=== PATIENT | female | born 1940 | race Caucasian/White ===

== ENCOUNTER → 2017-12-01 11:52 | Outpatient (CLI) | payer MEDICARE, OTHER, SELFPAY ==
[2017-12-01 12:51] LABS: Hemoglobin A1C% w Est Avg Glu 6.9 % (4.0-6.0)
[2017-12-01 12:58] LABS: Alanine Aminotransferase 20 IU/L (9-52); Albumin 4.1 g/dL (3.5-5.0); Albumin Globulin Ratio 1.3 (1.0-2.8); Alkaline Phosphatase 66 U/L (38-126); Aspartate Aminotransferase 22 IU/L (14-36); BUN Creatinine Ratio 32.9 (6-22); Bilirubin Total 0.5 mg/dL (0.2-1.3); Blood Urea Nitrogen 23 mg/dL (7-17); Calcium 9.7 mg/dL (8.4-10.2); Carbon Dioxide 28 mmol/L (22-32); Chloride 106 mmol/L (98-107); Cholesterol 153 mg/dL (140-199); Estimated Glomerular Filt Rate > 60.0 mL/min (>60); Globulin 3.2 g/dL (1.7-4.1); Glucose 135 mg/dL (80-110); HDL Cholesterol 50 mg/dL (40-60); HEMOLYSIS < 15 (0-50); LDL Cholesterol Calculated 69 mg/dL (<100); Potassium 4.9 mmol/L (3.4-5.1); Sodium 143 mmol/L (137-145); Total Protein 7.3 g/dL (6.3-8.2); Triglycerides 168 mg/dL (35-150)
== END ==
PROVIDERS: Family Provider Family Medicine; PCP Family Medicine; Visit Provider Nurse Practitioner Family
DX: E11.9 Type 2 diabetes mellitus without complications (principal); Z13.220 Encounter for screening for lipoid disorders
CPT/HCPCS: 36415; 80053; 80061; 83036

== ENCOUNTER → 2018-12-17 08:43 | Outpatient (CLI) | payer MEDICARE, OTHER, SELFPAY ==
[2018-12-17 09:28] LABS: BUN Creatinine Ratio 38.3 (6-22); Blood Urea Nitrogen 23 mg/dL (7-17); Calcium 9.7 mg/dL (8.4-10.2); Carbon Dioxide 23 mmol/L (22-32); Chloride 108 mmol/L (98-107); Estimated Glomerular Filt Rate > 60.0 mL/min (>60); Glucose 169 mg/dL (80-110); HEMOLYSIS < 15 (0-50); Potassium 4.3 mmol/L (3.4-5.1); Sodium 141 mmol/L (137-145)
== END ==
PROVIDERS: PCP Family Medicine; Visit Provider Internal Medicine Cardiovascular Disease
DX: I42.8 Other cardiomyopathies (principal)
CPT/HCPCS: 36415; 80048; 84443

== ENCOUNTER → 2019-01-12 11:38 | Outpatient (CLI) | payer MEDICARE, OTHER, SELFPAY ==
[2019-01-12 12:45] LABS: B Type Natriuretic Peptide < 100 (<100)
[2019-01-12 12:48] LABS: Alanine Aminotransferase 12 IU/L (9-52); Albumin 4.1 g/dL (3.5-5.0); Albumin Globulin Ratio 1.2 (1.0-2.8); Alkaline Phosphatase 70 U/L (38-126); Aspartate Aminotransferase 23 IU/L (14-36); BUN Creatinine Ratio 32.9 (6-22); Bilirubin Total 0.5 mg/dL (0.2-1.3); Blood Urea Nitrogen 23 mg/dL (7-17); Calcium 9.7 mg/dL (8.4-10.2); Carbon Dioxide 25 mmol/L (22-32); Chloride 106 mmol/L (98-107); Estimated Glomerular Filt Rate > 60.0 mL/min (>60); Globulin 3.3 g/dL (1.7-4.1); Glucose 152 mg/dL (80-110); HEMOLYSIS 18 (0-50); Potassium 4.3 mmol/L (3.4-5.1); Sodium 140 mmol/L (137-145); Total Protein 7.4 g/dL (6.3-8.2)
== END ==
PROVIDERS: PCP Family Medicine; Visit Provider Internal Medicine Cardiovascular Disease
DX: I42.8 Other cardiomyopathies (principal)
CPT/HCPCS: 36415; 80053; 83880

== ENCOUNTER 2019-07-24 00:28 | Emergency (ER) | payer MEDICARE, OTHER, SELFPAY ==
[2019-07-24] VITALS (7 sets, daily range): BP systolic 112–173; BP diastolic 56–77; PULSE 81–91; RESP 16–20; TEMP 36.8; O2SAT 97–99; BMI 52.7
--- NOTE | 2019-07-24 00:33 | DI.CT.S_ITS ---
PROCEDURE: CT HEAD/BRAIN WO CON INDICATIONS: altered mental status TECHNIQUE: Noncontrast 4.5 mm thick angled axial sections acquired from the foramen magnum to the vertex, with coronal and sagittal reformats. For radiation dose reduction, the following was used: automated exposure control, adjustment of mA and/or kV according to patient size. COMPARISON: None. FINDINGS: Image quality: This examination is limited by involuntary motion artifact. CSF spaces: Basal cisterns are patent. No extra-axial fluid collections. The ventricles are symmetric in size and shape. Brain: No intracranial bleeds or masses. There is cerebral volume loss for age, with resultant ventricular and sulcal prominence. There are periventricular and deep white matter chronic small vessel ischemic changes. There is intracranial internal carotid artery atherosclerosis. Skull and face: Calvarium and visualized facial bones appear intact, without suspicious lesions. Sinuses: Visualized sinuses and mastoids are clear. IMPRESSION: Limited intracranial study, without an acute intracranial process identified. Note: No significant discrepancy from the preliminary report. Dictated by: Glen Will M.D. on 07/24/2019 at 7:18 Approved by: Glen Will M.D. on 07/24/2019 at 7:19
--- NOTE | 2019-07-24 00:36 | ED_ITS ---
HPI - General Adult General Chief complaint: Altered Mental Status Stated complaint: Altered mental status Time Seen by Provider: 07/24/19 00:32 Source: patient and EMS Mode of arrival: EMS Limitations: no limitations History of Present Illness HPI narrative: Patient is a 79-year-old female who arrives by air ambulance from [place] for evaluation of altered mental status. Received a call from the geophysical party chief over [place] who stated that they were called to the patient's health several times today. The last time that they were called was for a fall. [place] that the [place] did seem more confused today. She stated that during their last visit to her the patient was alert and oriented x4 per the report however they do feel like that she was not answering questions as fast or sharply as she was earlier in the day. They were concerned about her altered mental status. There was also report that the patient was exposed to an individual who had COVID-19 although this patient was not currently exhibiting fevers cough or shortness of breath. Upon arrival the patient states that she did not feel like she was confused today. She stated that the reason she fell was that she slid out of her wheelchair and could not get up off the ground. She spends most of her day in the wheelchair. She does transition from the wheelchair to a bedside commode. She does live alone. She states she has been taking her medications. She denies any chest pain or shortness of breath or abdominal pain or headache or vision changes or nausea or vomiting. Related Data Home Medications Medication Instructions Recorded Confirmed ACETAMINOPHEN (TYLENOL EXTRA 1,000 mg PO BID #0 09/18/10 STRENGTH) cholecalciferol (vitamin D3) 2,000 unit PO BID #0 12/04/15 [Vitamin D3] Previous Rx's Medication Instructions Recorded atorvastatin [Lipitor] 40 mg PO HS #90 tab 12/04/15 metformin [Glucophage] 500 mg PO BIDCC #180 tab 07/04/16 gentamicin 0.1 % TOPICAL BID #60 % 10/02/16 silver sulfadiazine [Silvadene] 1 etelvina TOPICAL QDAY #45 gm 10/27/16 triamcinolone acetonide 1 etlevina TOPICAL BID #60 gm 11/05/16 levothyroxine 0.05 mg PO QAM #90 tab 11/10/16 allopurinol 300 mg PO QDAY #180 tab 12/16/16 Allergies Allergy/AdvReac Type Severity Reaction Status Date / Time No Known Drug Allergies Allergy Verified 07/24/19 02:51 Review of Systems Constitutional Constitutional: Denies chills, Denies fatigue, Denies fever(s), Denies frequent falls, Denies headache(s) and Denies malaise Eyes Eyes: Denies change in vision ENT Ears, Nose, Mouth, and Throat: Denies vertigo, Denies dizziness, Denies headache(s), Denies neck pain, Denies disequilibrium and Denies sore throat Cardiovascular Cardiovascular: Denies chest pain and Denies dyspnea Respiratory Respiratory: Denies cough and Denies dyspnea Gastrointestinal Gastrointestinal: Denies abdominal pain, Denies nausea and Denies vomiting Genitourinary Genitourinary: Denies dysuria Musculoskeletal Musculoskeletal: Denies myalgias, Denies arthralgias and Denies neck pain Comments: No change in musculoskeletal status Integumentary/Breasts Comments: No new skin changes Neurologic Neurologic: Reports confusion (Patient denies however EMS reports she has been confused), Denies vertigo, Denies dizziness, Denies frequent falls, Denies headache(s) and Denies disequilibrium Psychiatric Psychiatric: Reports confusion (Patient denies however EMS reports she has been confused) Endocrine Endocrine: Denies fatigue Hematologic/Lymphatic Hematologic/Lymphatic: Denies easy bleeding and Denies easy bruising Allergic/Immunologic Allergic/Immunologic: Denies urticaria Patient History Medical History (Updated 07/24/19 @ 05:37 by Martín Mon DO) Anemia (08/20/15) Chronic dermatitis (08/20/15) Chronic systolic congestive heart failure (08/20/15) Continuous leakage of urine (08/20/15) Coronary artery disease involving [place]da coronary artery of mecho[place]da heart without angina pectoris (08/20/15) Decubitus ulcer of sacral region, stage 2 (10/27/16) Essential hypertension (08/20/15) Idiopathic chronic gout of foot without tophus (08/20/15) Implantable cardioverter-defibrillator (ICD) in situ (08/20/15) Left bundle branch block (LBBB) (08/20/15) Moderate episode of recurrent major depressive disorder (08/20/15) Morbid obesity due to excess calories (09/20/15) Primary osteoarthritis involving multiple joints (08/20/15) Stage 3 chronic kidney disease (08/20/15) Type 2 diabetes mellitus without complication, with long-term current use of insulin (08/20/15) Surgical History History of tonsillectomy Implantable cardioverter-defibrillator (ICD) in situ S/P total abdominal hysterectomy and bilateral salpingo-oophorectomy Social History Smoking Status: Never smoker Exam Initial Vital Signs Initial Vital Signs: Vital Signs Temperature 98.3 F 07/24/19 00:32 Pulse Rate 91 H 07/24/19 00:32 Respiratory Rate 20 07/24/19 00:32 Blood Pressure 173/77 H 07/24/19 00:32 Pulse Oximetry 97 07/24/19 00:32 Const General: cooperative and comfortable Limitations: mental status not altered HENMT Head: normal to inspection and normocephalic Resp Effort & Inspection: normal respiratory effort Auscultation: clear to auscultation bilaterally Cardio Rate: regular rate Rhythm: regular rhythm GI Inspection: non-distended Palpation: soft, No firm and No tender Neuro General: alert, awake, oriented x3 and moves all extremities Cranial Nerves: CN's II-XI intact bilaterally Cognition: normal cognition Speech: speech normal Extrem General: normal to inspection and capillary refill normal Psych Appearance: grossly normal and well kempt Scores GCS [place] coma scale eye opening: Spontaneous Arlet coma scale verbal response: Orientated [place] coma scale motor response: Obey commands [place] coma scale total score: 15 Course Orders Ordered: ED Orders 07/24/19 00:33 CT head/brain wo con Stat 07/24/19 00:34 EKG-12 Lead Stat 07/24/19 00:50 Urinalysis and Microscopic Stat Urine Drug Screen, Rapid Stat 07/24/19 01:10 Ammonia (NH3) Stat Complete Blood Count AUTO DIFF Stat Comprehensive Metabolic Panel Stat Ethanol (ETOH) Stat Lipase Stat Partial Thromboplastin Time Stat Prothrombin Time INR Stat Thyroid Stimulating Hormone Stat Troponin I Stat 07/24/19 03:30 Troponin I Stat Discontinued Medications Acetaminophen (Tylenol) 975 mg PO NOW ONE Stop: 07/24/19 02:45 Last Admin: 07/24/19 03:04 Dose: 975 mg Documented by: KALANI Metformin HCl (Glucophage) 1,000 mg PO NOW ONE Stop: 07/24/19 02:46 Last Admin: 07/24/19 03:04 Dose: 1,000 mg Documented by: KALANI Vital Signs Vital signs: Vital Signs - 8 hr 07/24/19 00:32 07/24/19 01:36 07/24/19 03:59 Temperature 98.3 F Pulse Rate 91 H 90 81 Respiratory Rate 20 20 18 Blood Pressure 173/77 H Blood Pressure [Right Arm] 146/60 H 133/75 Pulse Oximetry 97 97 97 Medical Decision Making Lab Data Lab results reviewed: Yes I reviewed the patient's lab results. Result diagrams: 07/24/19 01:10 07/24/19 01:10 Labs: Lab Results 07/24/19 07/24/19 07/24/19 Range/Units 00:50 00:50 01:10 WBC 14.0 H (4.5-11.0) X10^3/uL RBC 3.95 L (4.0-5.2) X10^6/uL Hgb 12.9 (12.0-16.0) g/dL Hct 39.6 (36-46) % MCV 100.4 H (80-100) fL MCH 32.6 (26-34) PG MCHC 32.5 (30-36) % RDW 15.5 H (11.6-14.8) % Plt Count 148 L (150-400) X10^3/uL Neut % (Auto) 86.6 H (50-75) % Lymph % (Auto) 7.2 L (25-40) % [place] % (Auto) 5.8 (3-14) % Eos % (Auto) 0.2 L (2-4) % Baso % (Auto) 0.2 (0-2) % Neut # (Auto) 57812 H (3383-7243) /uL Lymph # (Auto) 1000 L (7776-5261) /uL [place] # (Auto) 800 (0-900) /uL Eos # (Auto) 0 (0-450) /uL Baso # (Auto) 0 (0-100) /uL PT (10.1-12.7) SECONDS INR (0.9-1.3) APTT (26.4-36.2) SECONDS Sodium (137-145) mmol/L Potassium (3.4-5.1) mmol/L Chloride (98-107) mmol/L Carbon Dioxide (22-32) mmol/L BUN (7-17) mg/dL Creatinine (0.52-1.04) mg/dL Estimated GFR (>60) mL/min BUN/Creatinine Ratio (6-22) Glucose (80-110) mg/dL Calcium (8.4-10.2) mg/dL Total Bilirubin (0.2-1.3) mg/dL AST (14-36) IU/L ALT (<35) IU/L Alkaline Phosphatase (38-126) U/L Ammonia (9-30) umol/L Troponin I (0.01-0.034) ng/mL Total Protein (6.3-8.2) g/dL Albumin (3.5-5.0) g/dL Globulin (1.7-4.1) g/dL Albumin/Globulin Ratio (1.0-2.8) Lipase (23-300) U/L TSH (0.47-4.68) uIU/mL Urine Color Yellow Urine Appearance Clear Urine pH 5.0 (4.5-8.0) Ur Specific [place] 1.010 (1.000-1.035) Urine Protein Negative (Negative) Urine Glucose (UA) Negative (Negative) g/dL Urine Ketones Negative (NEGATIVE) Urine Occult Blood Negative (Negative) Urine Nitrate Negative (Negative) Urine Bilirubin Negative (NEGATIVE) Urine Urobilinogen 0.2 (0.2) E.U./dL Ur Leukocyte Esterase Negative (NEGATIVE) Urine RBC None seen (0-5/HPF) Urine WBC None seen (0-5/HPF) Ur Squamous Epith Cells 1-5 /hpf (0-5/HPF) Urine Bacteria Few (2-10) H (None) Ur Culture Indicated? Cult not indicated U Opiates 300ng/mL cut Negative (Negative) Ur Oxycodone Screen Negative (Negative) Urine Methadone Screen Negative (Negative) Ur Barbiturates Screen Negative (Negative) U Tricyclic Antidepress Negative (Negative) Ur Phencyclidine Scrn Negative (Negative) Ur Amphetamines Screen Negative (Negative) U Methamphetamines Scrn Negative (Negative) Ur MDMA Scrn (Ecstasy) Negative (Negative) U Benzodiazepines Scrn Negative (Negative) Urine Cocaine Screen Negative (Negative) U Marijuana (THC) Screen Negative (Negative) Ethyl Alcohol ( - 10) mg/dL 07/24/19 07/24/19 07/24/19 Range/Units 01:10 01:10 01:10 WBC (4.5-11.0) X10^3/uL RBC (4.0-5.2) X10^6/uL Hgb (12.0-16.0) g/dL Hct (36-46) % MCV (80-100) fL MCH (26-34) PG MCHC (30-36) % RDW (11.6-14.8) % Plt Count (150-400) X10^3/uL Neut % (Auto) (50-75) % Lymph % (Auto) (25-40) % [place] % (Auto) (3-14) % Eos % (Auto) (2-4) % Baso % (Auto) (0-2) % Neut # (Auto) (4109-8002) /uL Lymph # (Auto) (8068-4527) /uL [place] # (Auto) (0-900) /uL Eos # (Auto) (0-450) /uL Baso # (Auto) (0-100) /uL PT 14.2 H (10.1-12.7) SECONDS INR 1.2 (0.9-1.3) APTT 30 (26.4-36.2) SECONDS Sodium 135 L (137-145) mmol/L Potassium 4.4 (3.4-5.1) mmol/L Chloride 102 (98-107) mmol/L Carbon Dioxide 26 (22-32) mmol/L BUN 22 H (7-17) mg/dL Creatinine 0.77 (0.52-1.04) mg/dL Estimated GFR > 60.0 (>60) mL/min BUN/Creatinine Ratio 28.6 H (6-22) Glucose 157 H (80-110) mg/dL Calcium 9.5 (8.4-10.2) mg/dL Total Bilirubin 0.7 (0.2-1.3) mg/dL AST 303 H (14-36) IU/L ALT 293 H (<35) IU/L Alkaline Phosphatase 82 (38-126) U/L Ammonia < 9 L (9-30) umol/L Troponin I 0.058 H (0.01-0.034) ng/mL Total Protein 7.3 (6.3-8.2) g/dL Albumin 3.9 (3.5-5.0) g/dL Globulin 3.4 (1.7-4.1) g/dL Albumin/Globulin Ratio 1.1 (1.0-2.8) Lipase 50 (23-300) U/L TSH (0.47-4.68) uIU/mL Urine Color Urine Appearance Urine pH (4.5-8.0) Ur Specific [place] (1.000-1.035) Urine Protein (Negative) Urine Glucose (UA) (Negative) g/dL Urine Ketones (NEGATIVE) Urine Occult Blood (Negative) Urine Nitrate (Negative) Urine Bilirubin (NEGATIVE) Urine Urobilinogen (0.2) E.U./dL Ur Leukocyte Esterase (NEGATIVE) Urine RBC (0-5/HPF) Urine WBC (0-5/HPF) Ur Squamous Epith Cells (0-5/HPF) Urine Bacteria (None) Ur Culture Indicated? U Opiates 300ng/mL cut (Negative) Ur Oxycodone Screen (Negative) Urine Methadone Screen (Negative) Ur Barbiturates Screen (Negative) U Tricyclic Antidepress (Negative) Ur Phencyclidine Scrn (Negative) Ur Amphetamines Screen (Negative) U Methamphetamines Scrn (Negative) Ur MDMA Scrn (Ecstasy) (Negative) U Benzodiazepines Scrn (Negative) Urine Cocaine Screen (Negative) U Marijuana (THC) Screen (Negative) Ethyl Alcohol < 10 ( - 10) mg/dL 07/24/19 07/24/19 Range/Units 01:10 03:30 WBC (4.5-11.0) X10^3/uL RBC (4.0-5.2) X10^6/uL Hgb (12.0-16.0) g/dL Hct (36-46) % MCV (80-100) fL MCH (26-34) PG MCHC (30-36) % RDW (11.6-14.8) % Plt Count (150-400) X10^3/uL Neut % (Auto) (50-75) % Lymph % (Auto) (25-40) % [place] % (Auto) (3-14) % Eos % (Auto) (2-4) % Baso % (Auto) (0-2) % Neut # (Auto) (0141-6731) /uL Lymph # (Auto) (5046-4948) /uL [place] # (Auto) (0-900) /uL Eos # (Auto) (0-450) /uL Baso # (Auto) (0-100) /uL PT (10.1-12.7) SECONDS INR (0.9-1.3) APTT (26.4-36.2) SECONDS Sodium (137-145) mmol/L Potassium (3.4-5.1) mmol/L Chloride (98-107) mmol/L Carbon Dioxide (22-32) mmol/L BUN (7-17) mg/dL Creatinine (0.52-1.04) mg/dL Estimated GFR (>60) mL/min BUN/Creatinine Ratio (6-22) Glucose (80-110) mg/dL Calcium (8.4-10.2) mg/dL Total Bilirubin (0.2-1.3) mg/dL AST (14-36) IU/L ALT (<35) IU/L Alkaline Phosphatase (38-126) U/L Ammonia (9-30) umol/L Troponin I 0.061 H (0.01-0.034) ng/mL Total Protein (6.3-8.2) g/dL Albumin (3.5-5.0) g/dL Globulin (1.7-4.1) g/dL Albumin/Globulin Ratio (1.0-2.8) Lipase (23-300) U/L TSH 0.53 (0.47-4.68) uIU/mL Urine Color Urine Appearance Urine pH (4.5-8.0) Ur Specific [place] (1.000-1.035) Urine Protein (Negative) Urine Glucose (UA) (Negative) g/dL Urine Ketones (NEGATIVE) Urine Occult Blood (Negative) Urine Nitrate (Negative) Urine Bilirubin (NEGATIVE) Urine Urobilinogen (0.2) E.U./dL Ur Leukocyte Esterase (NEGATIVE) Urine RBC (0-5/HPF) Urine WBC (0-5/HPF) Ur Squamous Epith Cells (0-5/HPF) Urine Bacteria (None) Ur Culture Indicated? U Opiates 300ng/mL cut (Negative) Ur Oxycodone Screen (Negative) Urine Methadone Screen (Negative) Ur Barbiturates Screen (Negative) U Tricyclic Antidepress (Negative) Ur Phencyclidine Scrn (Negative) Ur Amphetamines Screen (Negative) U Methamphetamines Scrn (Negative) Ur MDMA Scrn (Ecstasy) (Negative) U Benzodiazepines Scrn (Negative) Urine Cocaine Screen (Negative) U Marijuana (THC) Screen (Negative) Ethyl Alcohol ( - 10) mg/dL Imaging Data CT scan - head: Radiologist's Impression: No acute disease ECG Data Attestation: I personally reviewed and interpreted this ECG as follows: Prior ECG tracings: not available for review Interpretation: Ventricular paced Rate 89 MDM Narrative Medical decision making narrative: Patient was alert oriented x3. GCS of 15. Head CT was unremarkable. She was tested for COVID-19 given the initial report that she has been exposed to someone with this virus. Patient does have a leukocytosis however unsure the exact etiology of this. She is no signs of a urinary tract infection. No signs of meningitis. Her abdomen is soft. Low suspicion for pneumonia. Lungs are clear. She denies any fevers. Denies any cough. No chest pain. I feel we can hold on any antibiotics. Patient also had a slight elevation in troponin however repeated this shows no change. She does have a ventricular pacemaker in which is most likely the cause of this. She is not complaining of any chest pain. There are no ST changes on her EKG. Low suspicion for ACS. Patient states that she is at baseline neurologic and musculoskeletal. Feel we can hold on further workup. Low suspicion for CVA. Low suspicion for TIA. Low suspicion for any other toxicologic ingestion. Her alcohol level was 0. Ammonia level was negative. UDS is negative. Will discharge the patient home. She was given return precautions and follow-up instructions. She expressed understanding and agreement. Discharge Plan Departure Patient Disposition: Home Clinical Impression: Leukocytosis Qualifiers: Leukocytosis type: unspecified Qualified Code(s): D72.829 - Elevated white blood cell count, unspecified Instructions: How to Prevent Falls Activity Restrictions/Additional Instructions: Your workup here in the emergency department was unremarkable except for slight elevation in your white blood cell count. There does not appear to be any overt signs of an infection. Recommend that you contact her primary provider for follow-up. You can continue all of your medications as directed. Return to the emergency department for any new or worsening symptoms Prescriptions: No Action ACETAMINOPHEN (TYLENOL EXTRA STRENGTH) 1,000 mg PO BID Qty: 0 RF: 0 cholecalciferol (vitamin D3) [Vitamin D3] 2,000 UNIT capsule 2,000 unit PO BID Qty: 0 RF: 0 atorvastatin [Lipitor] 40 MG tablet 40 mg PO HS Qty: 90 RF: 3 metformin [Glucophage] 500 MG tablet 500 mg PO BIDCC Qty: 180 RF: 1 gentamicin 0.1 % ointment 0.1 % Topical BID Qty: 60 RF: 6 silver sulfadiazine [Silvadene] 1 % cream 1 etelvina Topical QDAY Qty: 45 RF: 0 triamcinolone acetonide 0.1 % ointment 1 etelvina Topical BID Qty: 60 RF: 4 levothyroxine 50 MCG tablet 0.05 mg PO QAM Qty: 90 RF: 0 allopurinol 100 MG tablet 300 mg PO QDAY Qty: 180 RF: 3 Referrals: Akira Cabrera MD [Primary Care Provider] -
[2019-07-24 01:04] LABS: RBC Urine None Seen (0-5/HPF); WBC Urine None Seen (0-5/HPF)
[2019-07-24 01:06] LABS: Appearance Urine UA CLEAR; Bilirubin Urine UA NEGATIVE (NEGATIVE); Color Urine UA YELLOW; Glucose Urine UA NEGATIVE (Negative); Ketones Urine UA NEGATIVE (NEGATIVE); Leukocyte Esterase Urine UA NEGATIVE (NEGATIVE); Nitrite Urine UA NEGATIVE (Negative); Occult Blood Urine UA NEGATIVE (Negative); Protein Urine UA NEGATIVE (Negative); Urobilinogen Urine UA 0.2 E.U./dL (0.2)
[2019-07-24 01:11] LABS: UR Morphine/Opiate cutoff 300 Negative (Negative); Ur Creatinine 50 (Normal); Urine Amphetamines Negative (Negative); Urine Barbiturates Negative (Negative); Urine Benzodiazepines Negative (Negative); Urine Cocaine Negative (Negative); Urine MDMA Negative (Negative); Urine Methadone Negative (Negative); Urine Methamphetamines Negative (Negative); Urine Oxycodone Negative (Negative); Urine Phencyclidine Negative (Negative); Urine Tetrahydrocannabinol Negative (Negative); Urine Tricyclic Antidepressant Negative (Negative); Urine pH 5 (Normal)
[2019-07-24 01:19] LABS: Bacteria Urine Few (2-10); Culture Indicated Urine Cult Not Indicated; Squamous Epithelial Cell Urine 1-5 /HPF (0-5/HPF)
[2019-07-24 01:26] LABS: Add Manual Diff / Slide Review NO; Basophils Absolute Auto 0 /uL (0-100); Basophils Percent Auto 0.2 % (0-2); Eosinophils Absolute Auto 0 /uL (0-450); Eosinophils Percent Auto 0.2 % (2-4); Hematocrit 39.6 % (36-46); Hemoglobin 12.9 g/dL (12.0-16.0); Lymphocytes Absolute Auto 1000 /uL (1100-4500); Lymphocytes Percent Auto 7.2 % (25-40); Mean Corpuscular HGB Conc 32.5 % (30-36); Mean Corpuscular Hemoglobin 32.6 PG (26-34); Mean Corpuscular Volume 100.4 fL (80-100); Monocytes Absolute Auto 800 /uL (0-900); Monocytes Percent Auto 5.8 % (3-14); Neutrophils Absolute Auto 12100 /uL (1500-7000); Neutrophils Percent Auto 86.6 % (50-75); Platelet Count 148 X10^3/uL (150-400); Red Blood Cell Count 3.95 X10^6/uL (4.0-5.2); Red Cell Distribution Width 15.5 % (11.6-14.8)
[2019-07-24 01:28] LABS: INR 1.2 (0.9-1.3); Prothrombin Time 14.2 SECONDS (10.1-12.7)
[2019-07-24 01:31] LABS: Ammonia (NH3) < 9 umol/L (9-30); PTT Partial Thromboplastin Tim 30 SECONDS (26.4-36.2)
[2019-07-24 01:33] LABS: Alanine Aminotransferase 293 IU/L (<35); Albumin 3.9 g/dL (3.5-5.0); Albumin Globulin Ratio 1.1 (1.0-2.8); Alkaline Phosphatase 82 U/L (38-126); Aspartate Aminotransferase 303 IU/L (14-36); BUN Creatinine Ratio 28.6 (6-22); Bilirubin Total 0.7 mg/dL (0.2-1.3); Blood Urea Nitrogen 22 mg/dL (7-17); Calcium 9.5 mg/dL (8.4-10.2); Carbon Dioxide 26 mmol/L (22-32); Chloride 102 mmol/L (98-107); Estimated Glomerular Filt Rate > 60.0 mL/min (>60); Globulin 3.4 g/dL (1.7-4.1); Glucose 157 mg/dL (80-110); HEMOLYSIS < 15 (0-50); Lipase 50 U/L (23-300); Potassium 4.4 mmol/L (3.4-5.1); Sodium 135 mmol/L (137-145); Total Protein 7.3 g/dL (6.3-8.2)
[2019-07-24 01:45] LABS: Ethanol (ETOH) < 10 mg/dL; Troponin I 0.058 ng/mL (0.01-0.034)
[2019-07-24 02:14] LABS: Thyroid Stimulating Hormone 0.53 uIU/mL (0.47-4.68)
[2019-07-24] MEDS: METFORMIN HCL 500 MG TABLET 1000 MG PO (03:04)
[2019-07-24] MEDS: ACETAMINOPHEN 325 MG TABLET 975 MG PO ×2 (03:04→08:04)
[2019-07-24 03:59] LABS: Troponin I 0.061 ng/mL (0.01-0.034)
--- NOTE | 2019-07-24 06:44 | PC.NURSE ---
Pt stated, I wet the bed. Refused chioma care/linen change Not right now. I'm ok.
--- NOTE | 2019-07-24 06:48 | PC.NURSE ---
DC plans discussed with pt, she stated that her son, Gurpreet, could bring her wheelchair from [place] to pick her up. Pt states that she can get in/out of car. With pt's ok, message left for Gurpreet on home phone. Awaiting call back from Gurpreet to discuss discharge transportation plans.
--- NOTE | 2019-07-24 07:42 | PC.NURSE ---
spoke with pt's son. he [place] take 0930 [address] [place] her approx 1030.
--- NOTE | 2019-07-24 08:15 | PC.NURSE ---
assisted pt to get dressed, over to bsc, then to wc. provided pt with breakfast tray and tylenol for arthritis pain. pt oriented x3. assisted pt to put barrier cream under breasts, and on bottom. otherwise pt independent.
[2019-07-27 09:39] LABS: COVID19 Sendout Not Detected (Not Detected)
== END 2019-07-24 10:47 | disposition home or self-care (01) ==
PROVIDERS: Emergency Provider Emergency Medicine; PCP Family Medicine
DX: R41.82 Altered mental status, unspecified (principal); Z20.828 Contact with and (suspected) exposure to other viral communicable diseases; Z95.0 Presence of cardiac pacemaker; R68.89 Other general symptoms and signs
CPT/HCPCS: 36415; 70450; 80053; 80305; 80320; 81001; 82140; 83690; 84443; 84484; 85025; 85610; 85730; 87635; 93005; 99284

== ENCOUNTER → 2020-08-22 10:01 | Outpatient (CLI) | payer MEDICARE, OTHER, SELFPAY ==
[2020-08-22 11:08] LABS: Add Manual Diff / Slide Review NO; Basophils Absolute Auto 0 /uL (0-100); Basophils Percent Auto 0.4 % (0-2); Eosinophils Absolute Auto 300 /uL (0-450); Eosinophils Percent Auto 4.6 % (2-4); Hematocrit 43.4 % (36-46); Hemoglobin 14.4 g/dL (12.0-16.0); Lymphocytes Absolute Auto 2100 /uL (1100-4500); Lymphocytes Percent Auto 32.4 % (25-40); Mean Corpuscular HGB Conc 33.1 % (30-36); Mean Corpuscular Hemoglobin 32.7 PG (26-34); Mean Corpuscular Volume 98.8 fL (80-100); Monocytes Absolute Auto 500 /uL (0-900); Monocytes Percent Auto 7.5 % (3-14); Neutrophils Absolute Auto 3500 /uL (1500-7000); Neutrophils Percent Auto 55.1 % (50-75); Platelet Count 142 X10^3/uL (150-400); Red Blood Cell Count 4.39 X10^6/uL (4.0-5.2); Red Cell Distribution Width 14.5 % (11.6-14.8); White Blood Cell Count 6.5 X10^3/uL (4.5-11.0)
[2020-08-22 11:22] LABS: BUN Creatinine Ratio 34.5 (6-22); Blood Urea Nitrogen 29 mg/dL (7-17); Calcium 10.2 mg/dL (8.4-10.2); Carbon Dioxide 24 mmol/L (22-32); Chloride 106 mmol/L (98-107); Cholesterol 155 mg/dL (140-199); Estimated Glomerular Filt Rate > 60.0 mL/min (>60); Glucose 105 mg/dL (80-110); HDL Cholesterol 52 mg/dL (40-60); HEMOLYSIS < 15 (0-50); LDL Cholesterol Calculated 69 mg/dL (<100); Magnesium 1.8 mg/dL (1.6-2.3); Potassium 4.8 mmol/L (3.4-5.1); Sodium 140 mmol/L (137-145); Triglycerides 170 mg/dL (35-150)
[2020-08-22 11:29] LABS: NT-proBNP (BNP-Adult 18+) 1670 pg/mL (<450)
[2020-08-22 11:37] LABS: Free T4, Direct Thyroxine 1.39 ng/dL (0.78-2.19)
[2020-08-22 11:51] LABS: TSH w/ Reflex to FT4 1.73 uIU/mL (0.47-4.68)
== END ==
PROVIDERS: PCP Family Medicine; Referring Provider Family Medicine; Visit Provider Family Medicine
DX: E83.42 Hypomagnesemia (principal); I10 Essential (primary) hypertension; I50.22 Chronic systolic (congestive) heart failure; E11.9 Type 2 diabetes mellitus without complications; E78.2 Mixed hyperlipidemia; E03.8 Other specified hypothyroidism; E06.3 Autoimmune thyroiditis
CPT/HCPCS: 36415; 80048; 80061; 83735; 83880; 84439; 84443; 85025

== ENCOUNTER 2021-02-13 12:09 | Emergency (ER) | payer MEDICARE, OTHER, SELFPAY ==
[2021-02-13] VITALS (9 sets, daily range): BP systolic 106–183; BP diastolic 56–88; PULSE 60–79; RESP 18; TEMP 36.8; O2SAT 93–100; BMI 32.3
--- NOTE | 2021-02-13 12:35 | ED.GENADULT ---
HPI - General Adult <Madhu Reyna PA-C - Last Filed: 02/13/21 19:41> General Chief complaint: Recheck/Abnormal Lab/Rx Stated complaint: PCP from [facility], high potassium Time Seen by Provider: 02/13/21 12:17 History of Present Illness HPI narrative: Patient is a 80-year-old female presenting to the emergency department today for evaluation elevated potassium. Patient was contacted by her primary care provider last night and was told to visit the emergency department due to a ?very high potassium level?. Patient states that she lives on [address] was able to just get to the emergency department today. Patient states that she does not have any symptoms, noting just 1 episode of ?looser than normal stools last night. Additionally, patient states that she was treated approximately 1 month ago for urinary tract infection with an unspecified antibiotic but she says that she had not taken previously. Patient also notes that she has experienced ?darker than normal urine? over the last couple of months. Patient denies fever, chills, chest pain, shortness of breath, palpitations, abdominal pain, nausea, vomiting, diarrhea, dysuria, hematuria, dizziness, lightheadedness, changes in vision, or changes in hearing. No other concerns voiced at this time. Related Data Home Medications Medication Instructions Recorded Confirmed ACETAMINOPHEN (TYLENOL EXTRA 1,000 mg PO BID #0 09/18/10 STRENGTH) cholecalciferol (vitamin D3) 50 2,000 unit PO BID #0 12/04/15 mcg (2,000 unit) capsule (Vitamin D3) Previous Rx's Medication Instructions Recorded atorvastatin 40 mg tablet (Lipitor) 40 mg PO HS #90 tab 12/04/15 metformin 500 mg tablet 500 mg PO BIDCC #180 tab 07/04/16 (Glucophage) gentamicin 0.1 % topical ointment 0.1 % TOPICAL BID #60 % 10/02/16 silver sulfadiazine 1 % topical 1 etelvina TOPICAL QDAY #45 gm 10/27/16 cream (Silvadene) triamcinolone acetonide 0.1 % 1 etelvina TOPICAL BID #60 gm 11/05/16 topical ointment levothyroxine 50 mcg tablet 0.05 mg PO QAM #90 tab 11/10/16 allopurinol 100 mg tablet 300 mg PO QDAY #180 tab 12/16/16 furosemide 40 mg tablet (Lasix) 40 mg PO DAILY #3 tab 02/13/21 Allergies Allergy/AdvReac Type Severity Reaction Status Date / Time No Known Drug Allergies Allergy Verified 07/24/19 02:51 Review of Systems <Madhu Reyna PA-C - Last Filed: 02/13/21 19:41> Constitutional Constitutional: Denies chills, Denies fatigue, Denies fever(s), Denies frequent falls, Denies lethargy and Denies weakness Eyes Eyes: Denies loss of vision ENT Ears, Nose, Mouth, and Throat: Denies dizziness and Denies neck pain Cardiovascular Cardiovascular: Denies chest pain, Denies irregular heart rhythm, Denies lightheadedness, Denies palpitations, Denies dyspnea, Denies dyspnea on exertion and Denies orthopnea Respiratory Respiratory: Denies cough, Denies dyspnea, Denies dyspnea on exertion and Denies wheezing Gastrointestinal Gastrointestinal: Denies abdominal pain, Denies change in bowel habits, Denies diarrhea, Denies nausea and Denies vomiting Genitourinary Genitourinary: Denies hematuria, Denies flank pain, Denies urinary incontinence and Denies urinary urgency Musculoskeletal Musculoskeletal: Denies back pain, Denies muscle weakness, Denies neck pain, Denies numbness and Denies tingling Neurologic Neurologic: Denies behavioral changes, Denies confusion, Denies dizziness, Denies frequent falls, Denies loss of vision, Denies numbness, Denies tingling and Denies weakness Psychiatric Psychiatric: Denies behavioral changes and Denies confusion Endocrine Endocrine: Denies fatigue, Denies flushing and Denies palpitations Allergic/Immunologic Allergic/Immunologic: Denies wheezing Patient History <Madhu Reyna PA-C - Last Filed: 02/13/21 19:41> Medical History Anemia (08/20/15) Chronic dermatitis (08/20/15) Chronic systolic congestive heart failure (08/20/15) Continuous leakage of urine (08/20/15) Coronary artery disease involving [place] coronary artery of [place] heart without angina pectoris (08/20/15) Decubitus ulcer of sacral region, stage 2 (10/27/16) Essential hypertension (08/20/15) Idiopathic chronic gout of foot without tophus (08/20/15) Implantable cardioverter-defibrillator (ICD) in situ (08/20/15) Left bundle branch block (LBBB) (08/20/15) Moderate episode of recurrent major depressive disorder (08/20/15) Morbid obesity due to excess calories (09/20/15) Primary osteoarthritis involving multiple joints (08/20/15) Stage 3 chronic kidney disease (08/20/15) Type 2 diabetes mellitus without complication, with long-term current use of insulin (08/20/15) Surgical History History of tonsillectomy Implantable cardioverter-defibrillator (ICD) in situ S/P total abdominal hysterectomy and bilateral salpingo-oophorectomy Social History Smoking Status: Never smoker Smoking Status: Never smoker alcohol intake frequency: 0-2 drinks per day Substance Use Type: does not use Exam <Madhu Reyna PA-C - Last Filed: 02/13/21 19:41> Narrative Exam Narrative: GENERAL: 80 year old patient appears stated age. Well-developed patient, in no distress. HEAD: Atraumatic. Normocephalic. EYES: Pupils equal round and reactive. Extraocular motions intact. No scleral icterus. No injection or drainage. ENT: Nose without bleeding, purulent drainage. Throat without erythema, tonsillar hypertrophy or exudate. Airway patent. NECK: Trachea midline. Non tender CARDIOVASCULAR: Regular rate and rhythm without murmurs, gallops, or rubs. RESPIRATORY: Clear to auscultation. Breath sounds equal bilaterally. No wheezes, rales, or rhonchi. GASTROINTESTINAL: Abdomen soft, non-tender, nondistended. EXTREMITIES: No joint tenderness. Edema noted on the dorsal aspect of the feet bilaterally. Feet are cool to the touch. BACK: Nontender without deformity or crepitance. No flank tenderness. NEURO: AOx3. SKIN: No rash or erythema of visible areas Initial Vital Signs Initial Vital Signs: Vital Signs Temperature 98.3 F 02/13/21 12:42 Pulse Rate 60 02/13/21 12:42 Respiratory Rate 18 02/13/21 12:42 Blood Pressure 183/88 H 02/13/21 12:42 Pulse Oximetry 98 02/13/21 12:42 <Martín Mon DO - Last Filed: 02/17/21 07:08> Initial Vital Signs Initial Vital Signs: Vital Signs Temperature 98.3 F 02/13/21 12:42 Pulse Rate 60 02/13/21 12:42 Respiratory Rate 18 02/13/21 12:42 Blood Pressure 183/88 H 02/13/21 12:42 Pulse Oximetry 98 02/13/21 12:42 Course <Madhu Reyna PA-C - Last Filed: 02/13/21 19:41> Course Course Narrative: CBC, CMP, lipase, EKG ordered. Orders Ordered: Discontinued Medications Albuterol (Albuterol 2.5 Mg/3 Ml Neb (Adult)) 5 mg INH NOW ONE Stop: 02/13/21 14:04 Last Admin: 02/13/21 14:24 Dose: 5 mg Documented by: JOHANNA Furosemide (Furosemide 40 Mg Tablet) 40 mg PO NOW ONE Stop: 02/13/21 14:04 Last Admin: 02/13/21 14:16 Dose: 40 mg Documented by: ALEXANDER Sodium Polystyrene Sulfonate (Sodium Polystyrene Sulfon/Sorb 15 Gm/60 Ml Cup) 15 gm PO NOW ONE Stop: 02/13/21 14:04 Last Admin: 02/13/21 14:17 Dose: 15 gm Documented by: ALEXANDER Vital Signs Vital signs: Vital Signs - 8 hr 02/13/21 12:42 02/13/21 14:28 02/13/21 15:42 Temperature 98.3 F Pulse Rate 60 77 Respiratory Rate 18 Blood Pressure 183/88 H Pulse Oximetry 98 100 98 02/13/21 16:00 02/13/21 16:30 02/13/21 17:00 Temperature Pulse Rate 73 79 74 Respiratory Rate Blood Pressure Pulse Oximetry 96 98 93 02/13/21 17:18 02/13/21 17:30 02/13/21 18:00 Temperature Pulse Rate 70 76 68 Respiratory Rate Blood Pressure 106/59 L 113/56 L Pulse Oximetry 98 99 99 <Martín Mon DO - Last Filed: 02/17/21 07:08> Orders Ordered: Discontinued Medications Albuterol (Albuterol 2.5 Mg/3 Ml Neb (Adult)) 5 mg INH NOW ONE Stop: 02/13/21 14:04 Last Admin: 02/13/21 14:24 Dose: 5 mg Documented by: JOHANNA Furosemide (Furosemide 40 Mg Tablet) 40 mg PO NOW ONE Stop: 02/13/21 14:04 Last Admin: 02/13/21 14:16 Dose: 40 mg Documented by: ALEXANDER Sodium Polystyrene Sulfonate (Sodium Polystyrene Sulfon/Sorb 15 Gm/60 Ml Cup) 15 gm PO NOW ONE Stop: 02/13/21 14:04 Last Admin: 02/13/21 14:17 Dose: 15 gm Documented by: ALEXANDER Vital Signs Vital signs: Vital Signs - 8 hr 02/13/21 12:42 02/13/21 14:28 02/13/21 15:42 Temperature 98.3 F Pulse Rate 60 77 Respiratory Rate 18 Blood Pressure 183/88 H Pulse Oximetry 98 100 98 02/13/21 16:00 02/13/21 16:30 02/13/21 17:00 Temperature Pulse Rate 73 79 74 Respiratory Rate Blood Pressure Pulse Oximetry 96 98 93 02/13/21 17:18 02/13/21 17:30 02/13/21 18:00 Temperature Pulse Rate 70 76 68 Respiratory Rate Blood Pressure 106/59 L 113/56 L Pulse Oximetry 98 99 99 Medical Decision Making <Madhu Reyna PA-C - Last Filed: 02/13/21 19:41> Lab Data Result diagrams: 02/13/21 13:34 02/13/21 16:30 Labs: Lab Results 02/13/21 02/13/21 02/13/21 Range/Units 13:34 13:34 16:30 WBC 6.9 (4.5-11.0) X10^3/uL RBC 3.84 L (4.0-5.2) X10^6/uL Hgb 12.5 (12.0-16.0) g/dL Hct 38.3 (36-46) % MCV 99.7 (80-100) fL MCH 32.5 (26-34) PG MCHC 32.6 (30-36) % RDW 14.7 (11.6-14.8) % Plt Count 141 L (150-400) X10^3/uL Neut % (Auto) 61.2 (50-75) % Lymph % (Auto) 27.4 (25-40) % [place] % (Auto) 7.2 (3-14) % Eos % (Auto) 3.7 (2-4) % Baso % (Auto) 0.5 (0-2) % Neut # (Auto) 4200 (3615-7119) /uL Lymph # (Auto) 1900 (2345-7688) /uL [place] # (Auto) 500 (0-900) /uL Eos # (Auto) 300 (0-450) /uL Baso # (Auto) 0 (0-100) /uL Sodium 141 139 (137-145) mmol/L Potassium 6.5 H* 5.7 H (3.4-5.1) mmol/L Chloride 114 H 112 H (98-107) mmol/L Carbon Dioxide 20 L 20 L (22-32) mmol/L BUN 38 H 37 H (7-17) mg/dL Creatinine 0.97 0.96 (0.52-1.04) mg/dL Estimated GFR 55.4 L 56.1 L (>60) mL/min BUN/Creatinine Ratio 39.2 H 38.5 H (6-22) Glucose 98 117 H (80-110) mg/dL Calcium 9.9 10.1 (8.4-10.2) mg/dL Total Bilirubin 0.4 (0.2-1.3) mg/dL AST 29 (14-36) IU/L ALT 16 (<35) IU/L Alkaline Phosphatase 54 (38-126) U/L Total Protein 7.0 (6.3-8.2) g/dL Albumin 4.1 (3.5-5.0) g/dL Globulin 2.9 (1.7-4.1) g/dL Albumin/Globulin Ratio 1.4 (1.0-2.8) Lipase 83 (23-300) U/L ECG Data Interpretation: Ventricular rate of 60 beats per minute, KS interval of 134 ms, no ST wave changes. MDM Narrative Medical decision making narrative: Patient is a 80-year-old female presenting to the emergency department today for evaluation elevated potassium. To consider symptomatic hyperkalemia versus asymptomatic hyperkalemia. Overall physical examination, history, an EKG reassuring. Following administration of Kayexalate, Lasix, and albuterol nebulizer treatment patient potassium decreased to 5.7. At this time patient feels comfortable being discharged home after discussing results lab work. Discussed strict return precautions with patient prior to discharge. Also discussed importance of following up with primary care. <Martín Mon, DO - Last Filed: 02/17/21 07:08> Lab Data Labs: Lab Results 02/13/21 02/13/21 02/13/21 Range/Units 13:34 13:34 16:30 WBC 6.9 (4.5-11.0) X10^3/uL RBC 3.84 L (4.0-5.2) X10^6/uL Hgb 12.5 (12.0-16.0) g/dL Hct 38.3 (36-46) % MCV 99.7 (80-100) fL MCH 32.5 (26-34) PG MCHC 32.6 (30-36) % RDW 14.7 (11.6-14.8) % Plt Count 141 L (150-400) X10^3/uL Neut % (Auto) 61.2 (50-75) % Lymph % (Auto) 27.4 (25-40) % [place] % (Auto) 7.2 (3-14) % Eos % (Auto) 3.7 (2-4) % Baso % (Auto) 0.5 (0-2) % Neut # (Auto) 4200 (9689-7234) /uL Lymph # (Auto) 1900 (6297-7628) /uL [place] # (Auto) 500 (0-900) /uL Eos # (Auto) 300 (0-450) /uL Baso # (Auto) 0 (0-100) /uL Sodium 141 139 (137-145) mmol/L Potassium 6.5 H* 5.7 H (3.4-5.1) mmol/L Chloride 114 H 112 H (98-107) mmol/L Carbon Dioxide 20 L 20 L (22-32) mmol/L BUN 38 H 37 H (7-17) mg/dL Creatinine 0.97 0.96 (0.52-1.04) mg/dL Estimated GFR 55.4 L 56.1 L (>60) mL/min BUN/Creatinine Ratio 39.2 H 38.5 H (6-22) Glucose 98 117 H (80-110) mg/dL Calcium 9.9 10.1 (8.4-10.2) mg/dL Total Bilirubin 0.4 (0.2-1.3) mg/dL AST 29 (14-36) IU/L ALT 16 (<35) IU/L Alkaline Phosphatase 54 (38-126) U/L Total Protein 7.0 (6.3-8.2) g/dL Albumin 4.1 (3.5-5.0) g/dL Globulin 2.9 (1.7-4.1) g/dL Albumin/Globulin Ratio 1.4 (1.0-2.8) Lipase 83 (23-300) U/L Discharge Plan Departure Patient Disposition: Home Clinical Impression: Acute hyperkalemia Instructions: DI for Hyperkalemia Activity Restrictions/Additional Instructions: *You have been diagnosed with acute hyperkalemia *What to do: *Please continue to take your regular medications as directed. [X] New medication prescriptions sent to your pharmacy: [facility] - Lasix [ ] New medication written as a paper prescription [ ] No new medications given *Please follow up with your primary care provider in the next 24-48 hours, call for an appointment. Please also follow-up with your continuous still operator as soon as possible. Let them know you were seen in the Emergency Department and that we ask that you be seen in follow up. We will electronically transmit a record of today's note if your PCP is in our system. Have potassium rechecked. *If you do not have a primary care provider please contact the [facility] Resource line at [phone]. They will ask some questions about your medical history and help get you set up with a doctor in the community. *Return to Emergency Department if you should have any new, worsening or concerning symptoms, such as fever greater than 101 F, shaking chills, generalized weakness, altered mental status, significant abdominal pain, persistent vomiting, persistent diarrhea, or other bothersome symptoms Prescriptions: New furosemide [Lasix] 40 mg tablet 40 mg PO DAILY Qty: 3 0RF No Action ACETAMINOPHEN (TYLENOL EXTRA STRENGTH) 1,000 mg PO BID Qty: 0 0RF cholecalciferol (vitamin D3) [Vitamin D3] 2,000 UNIT capsule 2,000 unit PO BID Qty: 0 0RF atorvastatin [Lipitor] 40 MG tablet 40 mg PO HS Qty: 90 3RF metformin [Glucophage] 500 MG tablet 500 mg PO BIDCC Qty: 180 1RF gentamicin 0.1 % ointment 0.1 % Topical BID Qty: 60 6RF silver sulfadiazine [Silvadene] 1 % cream 1 etelvina Topical QDAY Qty: 45 0RF triamcinolone acetonide 0.1 % ointment 1 etelvina Topical BID Qty: 60 4RF levothyroxine 50 MCG tablet 0.05 mg PO QAM Qty: 90 0RF allopurinol 100 MG tablet 300 mg PO QDAY Qty: 180 3RF Referrals: Akira Cabrera MD [Primary Care Provider] - <Martín Mon DO - Last Filed: 02/17/21 07:08> [facility]: Dr Mon Co-Sign Statement: I was available for consultation during this patient's emergency department visit. This chart is signed by myself for administrative purposes only. I did not have direct contact with this patient during this visit. They were seen independently by the APC.
[2021-02-13 13:45] LABS: Add Manual Diff / Slide Review NO; Basophils Absolute Auto 0 /uL (0-100); Basophils Percent Auto 0.5 % (0-2); Eosinophils Absolute Auto 300 /uL (0-450); Eosinophils Percent Auto 3.7 % (2-4); Hematocrit 38.3 % (36-46); Hemoglobin 12.5 g/dL (12.0-16.0); Lymphocytes Absolute Auto 1900 /uL (1100-4500); Lymphocytes Percent Auto 27.4 % (25-40); Mean Corpuscular HGB Conc 32.6 % (30-36); Mean Corpuscular Hemoglobin 32.5 PG (26-34); Mean Corpuscular Volume 99.7 fL (80-100); Monocytes Absolute Auto 500 /uL (0-900); Monocytes Percent Auto 7.2 % (3-14); Neutrophils Absolute Auto 4200 /uL (1500-7000); Neutrophils Percent Auto 61.2 % (50-75); Platelet Count 141 X10^3/uL (150-400); Red Blood Cell Count 3.84 X10^6/uL (4.0-5.2); Red Cell Distribution Width 14.7 % (11.6-14.8); White Blood Cell Count 6.9 X10^3/uL (4.5-11.0)
[2021-02-13 13:56] LABS: Alanine Aminotransferase 16 IU/L (<35); Albumin 4.1 g/dL (3.5-5.0); Albumin Globulin Ratio 1.4 (1.0-2.8); Alkaline Phosphatase 54 U/L (38-126); Aspartate Aminotransferase 29 IU/L (14-36); BUN Creatinine Ratio 39.2 (6-22); Bilirubin Total 0.4 mg/dL (0.2-1.3); Blood Urea Nitrogen 38 mg/dL (7-17); Calcium 9.9 mg/dL (8.4-10.2); Carbon Dioxide 20 mmol/L (22-32); Chloride 114 mmol/L (98-107); Estimated Glomerular Filt Rate 55.4 mL/min (>60); Globulin 2.9 g/dL (1.7-4.1); Glucose 98 mg/dL (80-110); HEMOLYSIS 34 (0-50); Lipase 83 U/L (23-300); Sodium 141 mmol/L (137-145)
[2021-02-13 13:58] LABS: Potassium 6.5 mmol/L (3.4-5.1)
[2021-02-13] MEDS: FUROSEMIDE 40 MG TABLET PO (14:16)
[2021-02-13] MEDS: SODIUM POLYSTYRENE SULFON/SORB 15 GM/60 ML CUP PO (14:17)
[2021-02-13] MEDS: ALBUTEROL 2.5 MG/3 ML NEB (ADULT) 5 MG INH (14:24)
[2021-02-13 17:40] LABS: BUN Creatinine Ratio 38.5 (6-22); Blood Urea Nitrogen 37 mg/dL (7-17); Calcium 10.1 mg/dL (8.4-10.2); Carbon Dioxide 20 mmol/L (22-32); Chloride 112 mmol/L (98-107); Estimated Glomerular Filt Rate 56.1 mL/min (>60); Glucose 117 mg/dL (80-110); HEMOLYSIS 20 (0-50); Sodium 139 mmol/L (137-145)
[2021-02-13 17:41] LABS: Potassium 5.7 mmol/L (3.4-5.1)
== END 2021-02-13 18:28 | disposition home or self-care (01) ==
PROVIDERS: Emergency Medicine; Emergency Provider Physician Assistant; PCP Family Medicine
DX: E87.5 Hyperkalemia (principal); I10 Essential (primary) hypertension
CPT/HCPCS: 36415; 80048; 80053; 83690; 85025; 93005; 94640; 99284; J7613

== ENCOUNTER → 2021-05-02 12:15 | Outpatient (CLI) | payer MEDICARE, OTHER, SELFPAY ==
[2021-05-02 12:57] LABS: BUN Creatinine Ratio 38.2 (6-22); Blood Urea Nitrogen 34 mg/dL (7-17); Calcium 9.9 mg/dL (8.4-10.2); Carbon Dioxide 24 mmol/L (22-32); Chloride 112 mmol/L (98-107); Estimated Glomerular Filt Rate > 60.0 mL/min (>60); Glucose 108 mg/dL (80-110); HEMOLYSIS 42 (0-50); Sodium 142 mmol/L (137-145)
[2021-05-02 13:04] LABS: Potassium 5.5 mmol/L (3.4-5.1)
== END ==
PROVIDERS: PCP Family Medicine; Referring Provider Internal Medicine Cardiovascular Disease; Visit Provider Internal Medicine Cardiovascular Disease
DX: I42.8 Other cardiomyopathies (principal)
CPT/HCPCS: 36415; 80048

== ENCOUNTER 2022-03-08 10:46 | Emergency (ER) | payer MEDICARE, OTHER, SELFPAY ==
[2022-03-08] VITALS (49 sets, daily range): BP systolic 90–148; BP diastolic 50–66; PULSE 63–143; RESP 15–36; TEMP 36.7; O2SAT 75–99
--- NOTE | 2022-03-08 11:19 | ED.GENADULT ---
HPI - General Adult General Chief complaint: Weakness Stated complaint: fell out of bed/weakness/confused Time Seen by Provider: 03/08/22 10:54 Source: patient and family Mode of arrival: Wheelchair Limitations: no limitations History of Present Illness HPI narrative: 81-year-old female. Arrived by private vehicle with family for evaluation multiple falls over the past 24 hours, increasing weakness over the past 24 hours and confusion/hallucinations. Patient does have multiple chronic medical issues. She does spend most of her time in a motorized wheelchair. She is able to transfer from her bed to the wheelchair from the wheelchair to the toilet and then also from the wheelchair to her chair at home. She is not able to dress herself. She does not cook for herself. She does live at home with her who is on hospice for prostate cancer. [place] very similar symptoms has which she presents with today. She was admitted to the hospital for a urinary tract infection. She was subsequently discharged on Thursday (3 days ago). She was discharged home. Since that time she has been unable to get out of her chair. Has required assistance to do the things that she normally would have been able to do on her own to include transferring. Family also states she is been hallucinating. Patient has called family multiple times stating that she was trapped in her basement and she needed help and was also talking about seeing things around the house that were not actually there. She is also fallen multiple times. Has had multiple EMS visits. Here in the emergency department the patient has no specific complaints. She does know that she is in the hospital and she knows what year it is. She states she does not remember falling yesterday or overnight. She does admit to being weak. Related Data Home Medications Medication Instructions Recorded Confirmed cholecalciferol (vitamin D3) 50 5,000 unit PO DAILY ##0 12/04/15 03/08/22 mcg (2,000 unit) capsule (Vitamin D3) Lactobacillus 1 cap PO QAM 03/08/22 03/08/22 acidophilus-Bifidobac.animalis 2.5 billion cell capsule (Daily Probiotic) acetaminophen 325 mg capsule 650 mg PO Q6H PRN Pain (Scale 03/08/22 03/08/22 (Tylenol) Score 4-6) aspirin 81 mg chewable tablet 81 mg PO DAILY 03/08/22 03/08/22 atorvastatin 40 mg tablet (Lipitor) 80 mg PO BEDTIME 03/08/22 03/08/22 buspirone 5 mg tablet 10 mg PO TID 03/08/22 03/08/22 carvedilol 25 mg tablet 25 mg PO BID 03/08/22 03/08/22 donepezil 5 mg tablet 5 mg PO DAILY 03/08/22 03/08/22 levothyroxine 50 mcg tablet 0.05 mg PO BEDTIME 03/08/22 03/08/22 lisinopril 5 mg tablet 5 mg PO QAM 03/08/22 03/08/22 lisinopril 5 mg tablet 10 mg PO BEDTIME 03/08/22 03/08/22 sertraline 25 mg tablet 25 mg PO DAILY 03/08/22 03/08/22 Previous Rx's Medication Instructions Recorded metformin 500 mg tablet 500 mg PO BIDCC #180 tabs 07/04/16 (Glucophage) allopurinol 100 mg tablet 300 mg PO QDAY #180 tabs 12/16/16 Allergies Allergy/AdvReac Type Severity Reaction Status Date / Time No Known Drug Allergies Allergy Verified 07/24/19 02:51 Review of Systems Review of Systems ROS Unobtainable: All systems reviewed & are unremarkable except as noted in HPI and below Patient History Medical History Anemia (08/20/15) Chronic dermatitis (08/20/15) Chronic systolic congestive heart failure (08/20/15) Continuous leakage of urine (08/20/15) Coronary artery disease involving [place] coronary artery of [place] heart without angina pectoris (08/20/15) Decubitus ulcer of sacral region, stage 2 (10/27/16) Essential hypertension (08/20/15) Idiopathic chronic gout of foot without tophus (08/20/15) Implantable cardioverter-defibrillator (ICD) in situ (08/20/15) Left bundle branch block (LBBB) (08/20/15) Moderate episode of recurrent major depressive disorder (08/20/15) Morbid obesity due to excess calories (09/20/15) Primary osteoarthritis involving multiple joints (08/20/15) Stage 3 chronic kidney disease (08/20/15) Type 2 diabetes mellitus without complication, with long-term current use of insulin (08/20/15) Surgical History History of tonsillectomy Implantable cardioverter-defibrillator (ICD) in situ S/P total abdominal hysterectomy and bilateral salpingo-oophorectomy Social History household members: spouse Smoking Status: Never smoker Smoking Status: Never smoker alcohol intake frequency: 0-2 drinks per day Substance Use Type: does not use Exam Initial Vital Signs Initial Vital Signs: Vital Signs Temperature 98.1 F 03/08/22 10:50 Pulse Rate 78 03/08/22 10:50 Respiratory Rate 23 03/08/22 10:50 Blood Pressure 113/52 L 03/08/22 10:50 Pulse Oximetry 96 03/08/22 10:50 Oxygen Delivery Method 03/08/22 10:50 Const General: No healthy appearing and comfortable HENMT Head: normal to inspection and normocephalic Resp Effort & Inspection: normal respiratory effort Auscultation: clear to auscultation bilaterally Cardio Rate: regular rate Rhythm: regular rhythm GI Inspection: normal to inspection Palpation: soft Back/Spine/Pelvis Cervical Spine: No cervical muscular tenderness and No cervical spinal tenderness Skin Other: Bruising throughout her body is very stages of healing. Neuro Other: Patient is alert to person and place but does seem confused as to why she is here. She does not remember falling. She seems to have no knowledge about her decline over the past couple days. She is no specific knowledge about hallucinating. Extrem Other: Patient has swelling to her lower extremities. Bruising to lower extremities. She can not lift her legs up off the bed. She can move bilateral upper extremities. Does have tenderness to the left upper shoulder. Psych Appearance: disheveled Course Orders Ordered: Acetaminophen (Acetaminophen 325 Mg Tablet) 975 mg PO BID FOR[facility]LY [facility], [facility] Last Admin: 03/09/22 08:30 Dose: 975 mg Documented By: JUAN ALBERTO Admin: 03/08/22 22:04 Dose: 975 mg Documented By: STEVE Allopurinol (Allopurinol 300 Mg Tablet) 300 mg PO DAILY [facility], [facility] Last Admin: 03/09/22 08:29 Dose: 300 mg Documented By: KM Aspirin (Aspirin Ec 81 Mg Tablet) 81 mg PO DAILY [facility], [facility] Last Admin: 03/09/22 08:29 Dose: 81 mg Documented By: JUAN ALBERTO Atorvastatin Calcium (Atorvastatin 20 Mg Tablet) 80 mg PO BEDTIME [facility], [facility] Last Admin: 03/08/22 22:05 Dose: 80 mg Documented By: STEVE Buspirone HCl (Buspirone 5 Mg Tablet) 10 mg PO TID [facility] Last Admin: 03/09/22 16:25 Dose: 10 mg Documented By: Admin: 03/09/22 08:27 Dose: 10 mg Documented By: UJAN ALBERTO Admin: 03/08/22 21:57 Dose: 10 mg Documented By: STEVE Carvedilol (Carvedilol 12.5 Mg Tablet) 25 mg PO BID [facility] Last Admin: 03/09/22 08:27 Dose: 25 mg Documented By: JUAN ALBERTO Admin: 03/08/22 21:53 Dose: 25 mg Documented By: STEVE Donepezil HCl (Donepezil 5 Mg Tablet) 5 mg PO BEDTIME [facility] Last Admin: 03/08/22 21:57 Dose: 5 mg Documented By: STEVE Levothyroxine Sodium (Levothyroxine 50 Mcg Tablet) 50 mcg PO DAILY [facility] Last Admin: 03/09/22 08:29 Dose: 50 mcg Documented By: JUAN ALBERTO Lisinopril (Lisinopril 5 Mg Tablet) 5 mg PO DAILY [facility] Metformin HCl (Metformin Hcl 500 Mg Tablet) 500 mg PO 0800,1700 [facility] Last Admin: 03/09/22 16:27 Dose: 500 mg Documented By: Admin: 03/09/22 08:30 Dose: 500 mg Documented By: JUAN ALBERTO Nystatin (Nystatin Cream 30 Gm) 1 applic TOP BID [facility], [facility] Last Admin: 03/09/22 08:30 Dose: 1 applic Documented By: JUAN ALBERTO Admin: 03/08/22 22:10 Dose: Not Given Documented By: STEVE Sertraline HCl (Sertraline 50 Mg Tablet) 25 mg PO BEDTIME [facility] Last Admin: 03/08/22 21:53 Dose: 25 mg Documented By: STEVE Discontinued Medications Atorvastatin Calcium (Atorvastatin 20 Mg Tablet) 80 mg PO QPM [facility] Haloperidol (Haloperidol 5 Mg/Ml Vial) 2 mg IV NOW ONE Stop: 03/08/22 22:07 Last Admin: 03/08/22 22:33 Dose: 2 mg Documented By: STEVE Sodium Chloride (Normal Saline 0.9%) 1,000 mls @ 125 mls/hr IV CONT JEFFERY Last Infusion: 03/08/22 22:01 Dose: 0 mls/hr Documented By: Admin: 03/08/22 12:41 Dose: 125 mls/hr Documented By: SABA Levothyroxine Sodium (Levothyroxine 50 Mcg Tablet) 50 mcg PO QPM JEFFERY Lisinopril (Lisinopril 10 Mg Tablet) 10 mg PO DAILY JEFFERY Vital Signs Vital signs: Vital Signs - 8 hr 03/09/22 09:45 03/09/22 09:45 Pulse Rate 60 Blood Pressure 103/49 L Pulse Oximetry 94 Medical Decision Making Lab Data Result diagrams: 03/08/22 11:35 03/08/22 11:35 Labs: Lab Results 03/08/22 03/08/22 03/08/22 Range/Units 11:30 11:35 11:35 WBC 7.7 (4.5-11.0) X10^3/uL RBC 3.28 L (4.0-5.2) X10^6/uL Hgb 10.6 L (12.0-16.0) g/dL Hct 32.3 L (36-46) % MCV 98.6 (80-100) fL MCH 32.2 (26-34) PG MCHC 32.7 (30-36) % RDW 15.1 H (11.6-14.8) % Plt Count 187 (150-400) X10^3/uL Neut % (Auto) 72.0 (50-75) % Lymph % (Auto) 12.3 L (25-40) % [place] % (Auto) 15.0 H (3-14) % Eos % (Auto) 0.4 L (2-4) % Baso % (Auto) 0.3 (0-2) % Neut # (Auto) 5600 (5185-9182) /uL Lymph # (Auto) 1000 L (6732-0519) /uL [place] # (Auto) 1200 H (0-900) /uL Eos # (Auto) 0 (0-450) /uL Baso # (Auto) 0 (0-100) /uL Sodium (137-145) mmol/L Potassium (3.4-5.1) mmol/L Chloride (98-107) mmol/L Carbon Dioxide (22-32) mmol/L BUN (7-17) mg/dL Creatinine (0.52-1.04) mg/dL Estimated GFR (>60) mL/min BUN/Creatinine Ratio (6-22) Glucose (80-110) mg/dL Lactate (0.7-2.1) mmol/L Calcium (8.4-10.2) mg/dL Magnesium (1.6-2.3) mg/dL Total Bilirubin (0.2-1.3) mg/dL AST (14-36) IU/L ALT (<35) IU/L Alkaline Phosphatase (38-126) U/L Ammonia (9-30) umol/L Total Creatine Kinase (30-135) U/L CK-MB (CK-2) CK-MB (CK-2) Rel Index Troponin I (0.01-0.034) ng/mL NT-Pro-B Natriuret Pep (<450) pg/mL Total Protein (6.3-8.2) g/dL Albumin (3.5-5.0) g/dL Globulin (1.7-4.1) g/dL Albumin/Globulin Ratio (1.0-2.8) Lipase (23-300) U/L Procalcitonin (<0.5) ng/mL TSH (0.47-4.68) uIU/mL Urine Color Urine Appearance Urine pH (4.5-8.0) Ur Specific [place] (1.000-1.035) Urine Protein (Negative) Urine Glucose (UA) (Negative) g/dL Urine Ketones (NEGATIVE) Urine Occult Blood (Negative) Urine Nitrate (Negative) Urine Bilirubin (NEGATIVE) Urine Urobilinogen (0.2) E.U./dL Ur Leukocyte Esterase (NEGATIVE) Urine RBC (0-5/HPF) Urine WBC (0-5/HPF) Amorphous Sediment Urine Bacteria (None) Acetaminophen < 10 (10-30) ug/mL Ethyl Alcohol ( - 10) mg/dL SARS-CoV-2 (PCR) Positive H (Negative) Influenza A (RT-PCR) Flu a negative (NEGATIVE) Influenza B (RT-PCR) Flu b negative (NEGATIVE) RSV (PCR) Negative (Negative) 03/08/22 03/08/22 03/08/22 Range/Units 11:35 11:35 11:35 WBC (4.5-11.0) X10^3/uL RBC (4.0-5.2) X10^6/uL Hgb (12.0-16.0) g/dL Hct (36-46) % MCV (80-100) fL MCH (26-34) PG MCHC (30-36) % RDW (11.6-14.8) % Plt Count (150-400) X10^3/uL Neut % (Auto) (50-75) % Lymph % (Auto) (25-40) % [place] % (Auto) (3-14) % Eos % (Auto) (2-4) % Baso % (Auto) (0-2) % Neut # (Auto) (6865-6974) /uL Lymph # (Auto) (8588-8865) /uL [place] # (Auto) (0-900) /uL Eos # (Auto) (0-450) /uL Baso # (Auto) (0-100) /uL Sodium 137 (137-145) mmol/L Potassium 4.7 (3.4-5.1) mmol/L Chloride 107 (98-107) mmol/L Carbon Dioxide 23 (22-32) mmol/L BUN 23 H (7-17) mg/dL Creatinine 0.77 (0.52-1.04) mg/dL Estimated GFR > 60 (>60) mL/min BUN/Creatinine Ratio 29.9 H (6-22) Glucose 130 H (80-110) mg/dL Lactate 2.8 H (0.7-2.1) mmol/L Calcium 8.5 (8.4-10.2) mg/dL Magnesium 1.6 (1.6-2.3) mg/dL Total Bilirubin 0.4 (0.2-1.3) mg/dL AST 34 (14-36) IU/L ALT 21 (<35) IU/L Alkaline Phosphatase 42 (38-126) U/L Ammonia (9-30) umol/L Total Creatine Kinase 35 (30-135) U/L CK-MB (CK-2) TNP CK-MB (CK-2) Rel Index TNP Troponin I 0.025 (0.01-0.034) ng/mL NT-Pro-B Natriuret Pep 4390 H (<450) pg/mL Total Protein 6.0 L (6.3-8.2) g/dL Albumin 3.1 L (3.5-5.0) g/dL Globulin 2.9 (1.7-4.1) g/dL Albumin/Globulin Ratio 1.1 (1.0-2.8) Lipase 71 (23-300) U/L Procalcitonin 0.17 (<0.5) ng/mL TSH (0.47-4.68) uIU/mL Urine Color Urine Appearance Urine pH (4.5-8.0) Ur Specific [place] (1.000-1.035) Urine Protein (Negative) Urine Glucose (UA) (Negative) g/dL Urine Ketones (NEGATIVE) Urine Occult Blood (Negative) Urine Nitrate (Negative) Urine Bilirubin (NEGATIVE) Urine Urobilinogen (0.2) E.U./dL Ur Leukocyte Esterase (NEGATIVE) Urine RBC (0-5/HPF) Urine WBC (0-5/HPF) Amorphous Sediment Urine Bacteria (None) Acetaminophen (10-30) ug/mL Ethyl Alcohol < 10 ( - 10) mg/dL SARS-CoV-2 (PCR) (Negative) Influenza A (RT-PCR) (NEGATIVE) Influenza B (RT-PCR) (NEGATIVE) RSV (PCR) (Negative) 03/08/22 03/08/22 03/08/22 Range/Units 12:15 12:15 12:25 WBC (4.5-11.0) X10^3/uL RBC (4.0-5.2) X10^6/uL Hgb (12.0-16.0) g/dL Hct (36-46) % MCV (80-100) fL MCH (26-34) PG MCHC (30-36) % RDW (11.6-14.8) % Plt Count (150-400) X10^3/uL Neut % (Auto) (50-75) % Lymph % (Auto) (25-40) % [place] % (Auto) (3-14) % Eos % (Auto) (2-4) % Baso % (Auto) (0-2) % Neut # (Auto) (6189-3477) /uL Lymph # (Auto) (4239-2873) /uL [place] # (Auto) (0-900) /uL Eos # (Auto) (0-450) /uL Baso # (Auto) (0-100) /uL Sodium (137-145) mmol/L Potassium (3.4-5.1) mmol/L Chloride (98-107) mmol/L Carbon Dioxide (22-32) mmol/L BUN (7-17) mg/dL Creatinine (0.52-1.04) mg/dL Estimated GFR (>60) mL/min BUN/Creatinine Ratio (6-22) Glucose (80-110) mg/dL Lactate (0.7-2.1) mmol/L Calcium (8.4-10.2) mg/dL Magnesium (1.6-2.3) mg/dL Total Bilirubin (0.2-1.3) mg/dL AST (14-36) IU/L ALT (<35) IU/L Alkaline Phosphatase (38-126) U/L Ammonia < 9 L (9-30) umol/L Total Creatine Kinase (30-135) U/L CK-MB (CK-2) CK-MB (CK-2) Rel Index Troponin I (0.01-0.034) ng/mL NT-Pro-B Natriuret Pep (<450) pg/mL Total Protein (6.3-8.2) g/dL Albumin (3.5-5.0) g/dL Globulin (1.7-4.1) g/dL Albumin/Globulin Ratio (1.0-2.8) Lipase (23-300) U/L Procalcitonin (<0.5) ng/mL TSH 0.865 (0.47-4.68) uIU/mL Urine Color Yellow Urine Appearance Clear Urine pH 5.0 (4.5-8.0) Ur Specific [place] 1.020 (1.000-1.035) Urine Protein Trace H (Negative) Urine Glucose (UA) Negative (Negative) g/dL Urine Ketones Negative (NEGATIVE) Urine Occult Blood Negative (Negative) Urine Nitrate Negative (Negative) Urine Bilirubin Negative (NEGATIVE) Urine Urobilinogen 0.2 (0.2) E.U./dL Ur Leukocyte Esterase Trace H (NEGATIVE) Urine RBC 0-1/hpf (0-5/HPF) Urine WBC 0-1/hpf (0-5/HPF) Amorphous Sediment 2+ Urine Bacteria None seen (None) Acetaminophen (10-30) ug/mL Ethyl Alcohol ( - 10) mg/dL SARS-CoV-2 (PCR) (Negative) Influenza A (RT-PCR) (NEGATIVE) Influenza B (RT-PCR) (NEGATIVE) RSV (PCR) (Negative) 03/08/22 Range/Units 14:45 WBC (4.5-11.0) X10^3/uL RBC (4.0-5.2) X10^6/uL Hgb (12.0-16.0) g/dL Hct (36-46) % MCV (80-100) fL MCH (26-34) PG MCHC (30-36) % RDW (11.6-14.8) % Plt Count (150-400) X10^3/uL Neut % (Auto) (50-75) % Lymph % (Auto) (25-40) % [place] % (Auto) (3-14) % Eos % (Auto) (2-4) % Baso % (Auto) (0-2) % Neut # (Auto) (2852-7174) /uL Lymph # (Auto) (6012-8951) /uL [place] # (Auto) (0-900) /uL Eos # (Auto) (0-450) /uL Baso # (Auto) (0-100) /uL Sodium (137-145) mmol/L Potassium (3.4-5.1) mmol/L Chloride (98-107) mmol/L Carbon Dioxide (22-32) mmol/L BUN (7-17) mg/dL Creatinine (0.52-1.04) mg/dL Estimated GFR (>60) mL/min BUN/Creatinine Ratio (6-22) Glucose (80-110) mg/dL Lactate 1.4 (0.7-2.1) mmol/L Calcium (8.4-10.2) mg/dL Magnesium (1.6-2.3) mg/dL Total Bilirubin (0.2-1.3) mg/dL AST (14-36) IU/L ALT (<35) IU/L Alkaline Phosphatase (38-126) U/L Ammonia (9-30) umol/L Total Creatine Kinase (30-135) U/L CK-MB (CK-2) CK-MB (CK-2) Rel Index Troponin I (0.01-0.034) ng/mL NT-Pro-B Natriuret Pep (<450) pg/mL Total Protein (6.3-8.2) g/dL Albumin (3.5-5.0) g/dL Globulin (1.7-4.1) g/dL Albumin/Globulin Ratio (1.0-2.8) Lipase (23-300) U/L Procalcitonin (<0.5) ng/mL TSH (0.47-4.68) uIU/mL Urine Color Urine Appearance Urine pH (4.5-8.0) Ur Specific [place] (1.000-1.035) Urine Protein (Negative) Urine Glucose (UA) (Negative) g/dL Urine Ketones (NEGATIVE) Urine Occult Blood (Negative) Urine Nitrate (Negative) Urine Bilirubin (NEGATIVE) Urine Urobilinogen (0.2) E.U./dL Ur Leukocyte Esterase (NEGATIVE) Urine RBC (0-5/HPF) Urine WBC (0-5/HPF) Amorphous Sediment Urine Bacteria (None) Acetaminophen (10-30) ug/mL Ethyl Alcohol ( - 10) mg/dL SARS-CoV-2 (PCR) (Negative) Influenza A (RT-PCR) (NEGATIVE) Influenza B (RT-PCR) (NEGATIVE) RSV (PCR) (Negative) Imaging Data CT scan - head: Radiologist's Impression: [place] [address] CT Scan Report Signed Patient: Candelaria Draper MR#: [id number] : 1940 Acct:[id number] Age/Sex: 81 / F Date of Service: 03/08/22 Loc: ED Accession Number: [id number] ?? Procedure: CT head/brain wo con Ordering Provider: Martín Mon D.O. PROCEDURE:? CT HEAD/BRAIN WO CON ? INDICATIONS:? Confusion, hallucinations, weakness ? TECHNIQUE:? Noncontrast 4.5 mm thick angled axial sections acquired from the foramen magnum to the vertex, with coronal and sagittal reformats.? For radiation dose reduction, the following was used:? automated exposure control, adjustment of mA and/or kV according to patient size.? ? COMPARISON:? [facility], CT, CT HEAD/BRAIN WO CON, 07/24/2019, 1:06. ? FINDINGS:? Image quality:? Excellent.? ? CSF spaces:? Basal cisterns are patent.? No extra-axial fluid collections.? The ventricles are symmetric in size and shape.? ? Brain:? No intracranial bleeds or masses.? There is cerebral volume loss for age, with resultant ventricular and sulcal prominence.? There are periventricular and deep white matter chronic small vessel ischemic changes.? There is intracranial internal carotid artery atherosclerosis.? ? Skull and face:? Calvarium and visualized facial bones appear intact, without suspicious lesions.? ? Sinuses:? Visualized sinuses and mastoids are clear.? ? IMPRESSION:? No acute intracranial abnormality. ? ? Dictated by: Kristen Briones M.D. on 03/08/2022 at 10:55 ? ? Approved by: Kristen Briones M.D. on 03/08/2022 at 10:56?? ECG Data Attestation: I personally reviewed and interpreted this ECG as follows: Interpretation: Atrially sensed/ventricularly paced Rate is 74 Left axis deviation MDM Narrative Medical decision making narrative: Dr Mon: No easily reversible cause of the patient's presenting symptoms. She is COVID positive which could be adding to her weakness. Patient was seen by Physical therapy. At baseline she is really only able to stand and pivot into her wheelchair however she is not currently able to do this now. I do not have any specific source of infection. She does have some pressure ulcers on her lower back and buttocks but they do not appear to be infected. Social work has been involved. We are attempting to find placement for the patient. Care turned over to Dr. Su to continue to evaluate until disposition. Discharge Plan Departure Prescriptions: No Action cholecalciferol (vitamin D3) [Vitamin D3] 2,000 UNIT capsule 5,000 unit PO DAILY Qty: 0 metformin [Glucophage] 500 MG tablet 500 mg PO BIDCC Qty: 180 1RF allopurinol 100 MG tablet 300 mg PO QDAY Qty: 180 3RF atorvastatin [Lipitor] 40 MG tablet 80 mg PO BEDTIME levothyroxine 50 MCG tablet 0.05 mg PO BEDTIME buspirone 5 mg tablet 10 mg PO TID Label Comments: TAKE TWO(2) TABLETS BY MOUTH THREE(3) TIMES DAILY NEEDED FOR ANXIETY Rx Instructions: take two in am, noon, & bedtime carvedilol 25 mg tablet 25 mg PO BID Label Comments: TAKE ONE(1) TABLET BY MOUTH TWO(2) TIMES DAILY WITH MEALS. donepezil 5 mg tablet 5 mg PO DAILY Label Comments: TAKE ONE(1) TABLET BY MOUTH ONCE DAILY AT BEDTIME Rx Instructions: take one tablet at bedtime sertraline 25 mg tablet 25 mg PO DAILY Label Comments: TAKE ONE(1) TABLET BY MOUTH ONCE DAILY AT BEDTIME lisinopril 5 mg tablet 5 mg PO QAM Label Comments: TAKE ONE(1) TABLET BY MOUTH IN THE MORNING AND TWO(2) TABLETS BY MOUTH AT NIGHT every day Rx Instructions: oen tab in the morning and two tabs at bedtime aspirin [Baby Aspirin] 81 mg Tablet,Chewable 81 mg PO DAILY Rx Instructions: take one at bedtime lisinopril 5 mg tablet 10 mg PO BEDTIME Label Comments: TAKE ONE(1) TABLET BY MOUTH IN THE MORNING AND TWO(2) TABLETS BY MOUTH AT NIGHT every day acetaminophen [Tylenol] 325 mg Capsule 650 mg PO Q6H PRN (Reason: Pain (Scale Score 4-6)) Daily Probiotic 2.5 billion cell Capsule 1 cap PO QAM Referrals: Akira Cabrera MD [Primary Care Provider] -
--- NOTE | 2022-03-08 11:20 | DI.CT.S_ITS ---
PROCEDURE: CT HEAD/BRAIN WO CON INDICATIONS: Confusion, hallucinations, weakness TECHNIQUE: Noncontrast 4.5 mm thick angled axial sections acquired from the foramen magnum to the vertex, with coronal and sagittal reformats. For radiation dose reduction, the following was used: automated exposure control, adjustment of mA and/or kV according to patient size. COMPARISON: [facility], CT, CT HEAD/BRAIN WO CON, 07/24/2019, 1:06. FINDINGS: Image quality: Excellent. CSF spaces: Basal cisterns are patent. No extra-axial fluid collections. The ventricles are symmetric in size and shape. Brain: No intracranial bleeds or masses. There is cerebral volume loss for age, with resultant ventricular and sulcal prominence. There are periventricular and deep white matter chronic small vessel ischemic changes. There is intracranial internal carotid artery atherosclerosis. Skull and face: Calvarium and visualized facial bones appear intact, without suspicious lesions. Sinuses: Visualized sinuses and mastoids are clear. IMPRESSION: No acute intracranial abnormality. Dictated by: Kristen Briones M.D. on 03/08/2022 at 10:55 Approved by: Kristen Briones M.D. on 03/08/2022 at 10:56
[2022-03-08 12:07] LABS: Add Manual Diff / Slide Review NO; Basophils Absolute Auto 0 /uL (0-100); Basophils Percent Auto 0.3 % (0-2); Eosinophils Absolute Auto 0 /uL (0-450); Eosinophils Percent Auto 0.4 % (2-4); Hematocrit 32.3 % (36-46); Hemoglobin 10.6 g/dL (12.0-16.0); Lymphocytes Absolute Auto 1000 /uL (1100-4500); Lymphocytes Percent Auto 12.3 % (25-40); Mean Corpuscular HGB Conc 32.7 % (30-36); Mean Corpuscular Hemoglobin 32.2 PG (26-34); Mean Corpuscular Volume 98.6 fL (80-100); Monocytes Absolute Auto 1200 /uL (0-900); Neutrophils Absolute Auto 5600 /uL (1500-7000); Platelet Count 187 X10^3/uL (150-400); Red Blood Cell Count 3.28 X10^6/uL (4.0-5.2); Red Cell Distribution Width 15.1 % (11.6-14.8); White Blood Cell Count 7.7 X10^3/uL (4.5-11.0)
[2022-03-08 12:15] LABS: Alanine Aminotransferase 21 IU/L (<35); Albumin 3.1 g/dL (3.5-5.0); Albumin Globulin Ratio 1.1 (1.0-2.8); Alkaline Phosphatase 42 U/L (38-126); Aspartate Aminotransferase 34 IU/L (14-36); BUN Creatinine Ratio 29.9 (6-22); Bilirubin Total 0.4 mg/dL (0.2-1.3); Blood Urea Nitrogen 23 mg/dL (7-17); Calcium 8.5 mg/dL (8.4-10.2); Carbon Dioxide 23 mmol/L (22-32); Chloride 107 mmol/L (98-107); Creatine Kinase 35 U/L (30-135); Estimated Glomerular Filt Rate > 60 mL/min (>60); Ethanol (ETOH) < 10 mg/dL; Globulin 2.9 g/dL (1.7-4.1); Glucose 130 mg/dL (80-110); Lipase 71 U/L (23-300); Magnesium 1.6 mg/dL (1.6-2.3); Potassium 4.7 mmol/L (3.4-5.1); Sodium 137 mmol/L (137-145)
[2022-03-08 12:16] LABS: Acetaminophen < 10 ug/mL (10-30); Lactate (Lactic Acid) 2.8 mmol/L (0.7-2.1)
[2022-03-08 12:17] LABS: HEMOLYSIS 63 (0-50)
[2022-03-08 12:26] LABS: Troponin I 0.025 ng/mL (0.01-0.034)
[2022-03-08 12:31] LABS: Procalcitonin 0.17 ng/mL (<0.5)
[2022-03-08 12:33] LABS: Ammonia (NH3) < 9 umol/L (9-30)
[2022-03-08 12:34] LABS: Appearance Urine UA CLEAR; Bilirubin Urine UA NEGATIVE (NEGATIVE); Color Urine UA YELLOW; Glucose Urine UA NEGATIVE (Negative); Ketones Urine UA NEGATIVE (NEGATIVE); Leukocyte Esterase Urine UA TRACE (NEGATIVE); Nitrite Urine UA NEGATIVE (Negative); Occult Blood Urine UA NEGATIVE (Negative); Protein Urine UA TRACE (Negative); Urobilinogen Urine UA 0.2 E.U./dL (0.2)
[2022-03-08] MEDS: SODIUM CHLORIDE 0.9% 1,000 ML 125 ML IV (12:41)
[2022-03-08 13:13] LABS: Influenza A - CEPHEID Flu A NEGATIVE (NEGATIVE); Influenza B - CEPHEID Flu B NEGATIVE (NEGATIVE); Respiratory Syncytial Virus Negative (Negative)
[2022-03-08 13:14] LABS: COVID-19 CEPHEID 4-PLEX PCR POSITIVE (Negative)
[2022-03-08 13:19] LABS: Thyroid Stimulating Hormone 0.865 uIU/mL (0.47-4.68)
[2022-03-08 13:26] LABS: Amorphous Sediment Urine 2+; RBC Urine 0-1/HPF (0-5/HPF); WBC Urine 0-1/HPF (0-5/HPF)
[2022-03-08 13:27] LABS: Bacteria Urine None Seen
[2022-03-08 13:51] LABS: Reflexed Lactate in 2 Hours Y
[2022-03-08 14:11] LABS: NT-proBNP (BNP-Adult 18+) 4390 pg/mL (<450)
--- NOTE | 2022-03-08 14:55 | PT.IIE ---
Surgical History (Last Reviewed 02/13/21 @ 12:40 by Madhu Reyna PA-C) History of tonsillectomy Implantable cardioverter-defibrillator (ICD) in situ S/P total abdominal hysterectomy and bilateral salpingo-oophorectomy Medical History (Last Reviewed 03/08/22 @ 11:25 by Martín Mon DO) Anemia (08/20/15) Chronic dermatitis (08/20/15) Chronic systolic congestive heart failure (08/20/15) Continuous leakage of urine (08/20/15) Coronary artery disease involving [place] coronary artery of [place] heart without angina pectoris (08/20/15) Decubitus ulcer of sacral region, stage 2 (10/27/16) Essential hypertension (08/20/15) Idiopathic chronic gout of foot without tophus (08/20/15) Implantable cardioverter-defibrillator (ICD) in situ (08/20/15) Left bundle branch block (LBBB) (08/20/15) Moderate episode of recurrent major depressive disorder (08/20/15) Morbid obesity due to excess calories (09/20/15) Primary osteoarthritis involving multiple joints (08/20/15) Stage 3 chronic kidney disease (08/20/15) Type 2 diabetes mellitus without complication, with long-term current use of insulin (08/20/15) Physical Therapy Inpatient Evaluation/Re-Eval M1 PT/OT-IP Prior Functional Status Start: 03/08/22 16:58 Freq: Status: Active Protocol: Document 03/08/22 14:55 AB (Rec: 03/08/22 17:22 AB [id number]) Medical Review Prior Functional Status Medical History Reviewed Yes Communication able to make needs known but with confusion Mobility and Gait daughters in room with pt and provided most of the PLOF and home set up info. Pt is w/c bound and uses her power w/c for mobility but able to pivot transfer by herself without AD. stated that she reaches over and squat pivots. stated that she is modified independent with bed mobility and able to transfer to her bedside commode by herself. Activities of Daily Living and IADL's pt able to transfer to her shower chair but her neighbor assists her with some shower needs and dressing needs; daughter stated that pt has to be able to transfer by herself due to the neighbor only can assist her with some shower and dressing needs but not with transfers. Prior Functional Level (Other details) per family: pt was just at [facility] for UTI and just go home 1 week ago. Pt had a few falls at home and now in the hospital due to her falls Social History Household Members spouse Living Arrangements House Number of Floors (Floors) Two Floors Number of Stairs To Enter/Railing? pt stays on main level of the house ramp to enter Home Environment Walk in Shower Home Equipment Power Wheelchair/Scooter, Bedside Commode,Tub Transfer Bench,Lift Recliner,Grab Bars In Shower Additional Social History Comment Spouse is on hospice care and will not be able to assist pt at home (spouse has his own caregivers at home) pt stated that she has 3 bedside commodes : one next to the bed and another next to her lift chair M2 PT-IP Current Condition Start: 03/08/22 16:58 Freq: Status: Active Protocol: Document 03/08/22 14:55 AB (Rec: 03/08/22 17: AB [id number]) Physical Therapy Current Condition Current Condition Evaluation Date 03/08/22 Treatment Diagnosis Covid ; GLF; generalized weakness Onset Date 03/08/22 M3 PT-IP Subjective Start: 03/08/22 16:58 Freq: Status: Active Protocol: Document 03/08/22 14:55 AB (Rec: 03/08/22 17:22 AB [id number]) Subjective Physical Therapy Visit Type Type Initial Evaluation Visit Start Time 14:55 Visit Stop Time 16:00 Total Visit Minutes 65 Number of VIBRATORY PILE DRIVER Visits 0 Physical Therapy Visit Comments Patient Comments pt stating that she is independent at home and that it is not a fair test since bed and set up in the hospital is different from home. daughters in room explaining to pt that she has fallen a few times at home already and PT assessment is necessary. Therapy Pain Assessment Pain When Pain Assessed At Rest Location Buttock Scale Used per pt: pressure sores: pain scale not stated Pain Management Techniques Modification of Treatment,Re- positioning M4 PT-IP Mobility and Gait Start: 03/08/22 16:58 Freq: Status: Active Protocol: Document 03/08/22 14:55 AB (Rec: 03/08/22 17: AB [email or web address]) PT-Bed Mobility Assessment Supine to Sit Supine to Sit Standby Assistance Sit to Supine Sit to Supine Minimal Assistance,Moderate Assistance PT-Transfer Assessment Sit to and From Stand Sit to and from Stand Contact Guard Assistance, Minimal Assistance,1 Person Assistance,Use of Upper Extremities Equipment Transfer Assistive Device Gait Belt Orthotic/Prosthetic Devices or Brace: No Transfers Transfer Destination Bed,Wheelchair Transfer Technique Stand Pivot Transfer Ability Level of Assist Contact Guard Assistance, Minimal Assistance,1 Person Assistance,Use of Upper Extremities Comments Mobility Comments completed supine to sit SBA and cues for safety. completed sit to stand CGA from high bed and squat pivot to power w/c CGA. pt directs her own care and stated that she does not need assistance but presents with difficulty with movement. completed sit to stand x 2 attempts and needing min A from power w/c and min A for squat pivot without AD back to bed. min A for sit to supine back to bed. positioned pt in bed. call light and table placed within reach. informed director of casework department regarding pt's mobility and d/ c plan. PT-Balance Assessment Sitting Balance and Reactions Static Sitting Balance Ability Good Dynamic Sitting Balance Ability Fair Standing Balance and Reactions Static Standing Balance Ability Poor Dynamic Standing Balance Ability Poor M5 PT-IP Objective Assessments Start: 03/08/22 16:58 Freq: Status: Active Protocol: Document 03/08/22 14:55 AB (Rec: 03/08/22 17: AB [id number]) Orientation Orientation/Cognition Level of Alertness Confusional State Orientation Name,Place,Situation Safety Awareness Decreased Safety Awareness Memory Description Short Term Impaired Gross Range of Motion Lower Extremity ROM Assessment Right Impaired Impairments R knee in ~ 30 deg of flexion: unable to complete flexion/ extension with c/o pain: pt stated that she had previous knee fracture without intervention . Strength Lower Extremity Strength Assessment Right Impaired Hip 3+/5 Knee limited ROM Sensation Assessment Sensation Gross Sensation WNL Muscle Tone Muscle Tone WNL Yes M6 PT-IP Treatment Start: 03/08/22 16:58 Freq: Status: Active Protocol: Document 03/08/22 14:55 AB (Rec: 03/08/22 17:22 AB [email or web address]) Physical Therapy Treatment Education Education Provided Safety M7 PT-IP Assessment and Plan Start: 03/08/22 16:58 Freq: Status: Active Protocol: Document 03/08/22 14:55 AB (Rec: 03/08/22 17: AB [email or web address]) PT Summary Assessment and Plan Potential Rehabilitation Potential Fair Status of Condition at Evaluation Evolving Summary Impairments Pain,ROM,Strength,Balance, Coordination,Sensation,Tone, Cognition,Bed Mobility, Transfers,Gait,Activity Tolerance Assessment Summary PT eval received from ED to determine safe d/c plan. pt requiring min to mod A with mobility and will require 24/7 assist at this time. pt with h/o falls at home and is a high fall risk. Pt will require SNF rehab at this time . network operations manager is aware. will continue to assess. Goals Bed Mobility Goal Independent Transfer Goal Independent Days to Meet Goals 5 Frequency of Treatment Frequency Of Treatment Once a Day Treatment Plan Physical Therapy Treatment Plan Bed Mobility Training,Transfer Training,Gait Training, Therapeutic Exercise,Balance Retraining,Discharge Planning, Hot or Cold Pack,Neuromuscular Re-ed,Coordination Retraining ,Manual Therapy Precautions Other Precautions Covid precautions Recommendations To Nursing Amount of Assist Needed 1 Person Assist Discharge Recommendations PT Discharge Recommendations SNF Rehab Transportation Needs at Discharge Wheelchair/Cabulance
[2022-03-08 15:06] LABS: Lactate 2HR (Lactic Acid Rflx) 1.4 mmol/L (0.7-2.1)
--- NOTE | 2022-03-08 18:23 | CM.DANOTE ---
ED DCP Assessment Note Patient is 81 y/o female who presents to ED due to concern for recent GLFs since d/c from [facility] on 03/05/22, patient also presents with concern for weakness & UTI. Family reports concern for AMS. Patient diagnosed with Covid 19 upon ED visit today. Patient was admitted at [facility] from 03/01/22-03/05/22 due to chronic weakness and acute cystitis. Patient was d/c'd with referral for [facility], referral for wound care clinic with JENNIFER [facility] [place] and recommended f/u with PCP. Patient's PCP is Dr. Akira Cabrera, patient has Medicare and [employer] insurance. Per patient's daughters, patient recently applied for Medicaid and application is in progress of reviewing patient's eligibility. Patient has hx of Acute Hyperkalemia, chronic systolic congestive heart failure, CAD, Hypertension, Mixed Hyperlipidemia and type 2 Diabetes. BINDING CEMENTER FRENCH CORD enters room and keeps distance to meet with patient and daughters. Present in room are patient's daughters Leonila and Serjio. It is reported that Serjio lives in [place] and Leonila resides in [place]. Patient presents as A/Ox3. Patient resides with spouse on [place] who is currently terminally ill and on Hopsice. It is reported that patient has had recent falls since d/c from [facility] and [facility] services have not started yet. It is reported that at baseline uses motorized wheelchair and can transfer. Per patient and family, patient has not been able to transfer since returning home. Patient utilizes [facility] services and currently receives Meals on Wheels, rx slate picker, receives rides and has grocery shopping done for her. Patient's neighbor assists patient with showering in shower chair and dressing. It is reported that at baseline patient was able to transfer from wheelchair to commode, shower chair and bed independently but has not been able to do so due to weakness in the last week. Patient does not have anyone at home that can assist patient per family. PT evaluates patient and recommends 24/7 assistance, SNF rehab due to patient's high fall risk, patient requiring 1 person assist for transfers. BINDING CEMENTER FRENCH CORD calls Dani at [facility] and it is reported that services have not started yet but should start by Thursday or Thursday of next week. Per patient's family and patient, they state preference for SNF rehab with plan B of Home with [facility]. Preference for SNF rehabs are for [facility] SNFs but family open to [facility]. BINDING CEMENTER FRENCH CORD calls SNF rehabs that accept [facility] Insurance in [place], [facility]: [facility]- currently not taking covid patients. [facility]- BINDING CEMENTER FRENCH CORD leaves VM requesting return call and faxes referral [facility] - BINDING CEMENTER FRENCH CORD leaves VM requesting return call and faxes referral [facility] - It is reported that they could accept new patients as soon as mid next week, BINDING CEMENTER FRENCH CORD faxes referral for review. [facility] - It is reported that this SNF is closing and not accepting new patients. [facility] - BINDING CEMENTER FRENCH CORD leaves VM requesting return call and faxes referral [facility]- It is reported that they have no isolation beds for covid pts. [facility] - BINDING CEMENTER FRENCH CORD leaves VM requesting return call and faxes referral [facility] - BINDING CEMENTER FRENCH CORD unable to leave VM due to full mail box, BINDING CEMENTER FRENCH CORD faxes referral [facility] - It is reported that patients with covid + dx will need to quarantine for 10 days prior to admission [facility] - BINDING CEMENTER FRENCH CORD leaves VM requesting return call and faxes referral Plan: Patient to continue to work with PT in ED, BINDING CEMENTER FRENCH CORD to continue to seek SNF rehab for patient, likely will not receive response over the weekend. Plan B Home with [facility] with patient's natural supports. DANIE Bell Discharge Planning/Care Management CM Discharge Assessment Start: 03/08/22 14:23 Freq: Status: Active Protocol: Document 03/08/22 18:13 LN (Rec: 03/08/22 18:18 LN [id number]) Discharge Planning Assessment Assigned Link Assembler DANIE Lam Advance Directives? Yes History Provided By Patient,Family Member,Medical Record Has Patient been admitted in last 30 Yes days? Comment Patient as admitted inpatient/ Obs status at [facility] from 03/02/22 to 03/05/22. Prior Living Arrangements House Household Members spouse Type of transporation used prior to Relies on Others admit Independent with ADL's No: not recently Is patient alert and oriented? Yes Needs Assistance With Bathing,Toileting,Home Chores / Shopping Caregiver for Another Yes: Spouse is currently on hospice at home Comment Patient has current HH referral with [facility] but services have not started yet DME Already Rented / Owned Wheelchair, shower chair, bedside commode, lift chair Comment Patient uses motorized wheelchair at baseline Patient/Family Preference Senior Care Facility Barriers to Discharge Yes Comment Covid + dx Referrals Initiated Senior Care Additional Comment SNF rehab via [facility] vs. Home with HH If patient plan is home with home health Current referral for [facility] : Has signed face to face form been in place completed? If patient plan is SNF: Has PASSR been Yes completed? SNF/HH Preference Discussed options, family and patient have preference for [facility] SNFs primarily but also open to [facility] SNFs. Has Agency SNF been contacted Yes Please Provide Date Initial DC 03/08/22 Assessment Was Performed
[2022-03-08] MEDS: carvediloL 12.5 MG TABLET 25 MG PO (21:53)
[2022-03-08] MEDS: SERTRALINE 50 MG TABLET 25 MG PO (21:53)
[2022-03-08] MEDS: DONEPEZIL 5 MG TABLET PO (21:57)
[2022-03-08] MEDS: BUSPIRONE 5 MG TABLET 10 MG PO (21:57)
[2022-03-08] MEDS: ACETAMINOPHEN 325 MG TABLET 975 MG PO (22:04)
[2022-03-08] MEDS: ATORVASTATIN 20 MG TABLET 80 MG PO (22:05)
--- NOTE | 2022-03-08 22:09 | PC.NURSE ---
Addendum entered by Ingrid Weaver R.N. 03/08/22 22:19: Pt is restless and pulling on her equipment monitoring cords. Contacted daughter, Serjio, who states she has been having increasing restlessness, agitation and sun-downing like behavior for past few months but no diagnosis. Per daughter, pt recently had UTI while at [facility] and was placed on abx. Provider aware. Original Note: Pt pulled out IV. Second IV remains in place.
[2022-03-08] MEDS: HALOPERIDOL 5 MG/ML VIAL 2 MG IV (22:33)
[2022-03-09] VITALS (39 sets, daily range): BP systolic 103–149; BP diastolic 49–84; PULSE 59–88; RESP 18; TEMP 36.6; O2SAT 94–99
[2022-03-09] MEDS: carvediloL 12.5 MG TABLET 25 MG PO ×2 (08:27→21:56)
[2022-03-09] MEDS: BUSPIRONE 5 MG TABLET 10 MG PO ×3 (08:27→21:55)
[2022-03-09] MEDS: LEVOTHYROXINE 50 MCG TABLET PO (08:29)
[2022-03-09] MEDS: allopurinoL 300 MG TABLET PO (08:29)
[2022-03-09] MEDS: ASPIRIN EC 81 MG TABLET PO (08:29)
[2022-03-09] MEDS: ACETAMINOPHEN 325 MG TABLET 975 MG PO ×2 (08:30→21:59)
[2022-03-09] MEDS: METFORMIN HCL 500 MG TABLET PO ×2 (08:30→16:27)
[2022-03-09] MEDS: NYSTATIN CREAM 30 GM 1 APPLIC TOP ×2 (08:30→22:00)
--- NOTE | 2022-03-09 16:48 | PT.IPTN ---
Physical Therapy Treatment Note M2 PT-IP Current Condition Start: 03/08/22 16:58 Freq: Status: Active Protocol: Document 03/08/22 14:55 AB (Rec: 03/08/22 17:22 AB [id number]) Physical Therapy Current Condition Current Condition Evaluation Date 03/08/22 Treatment Diagnosis Covid ; GLF; generalized weakness Onset Date 03/08/22 M3 PT-IP Subjective Start: 03/08/22 16:58 Freq: Status: Active Protocol: Document 03/09/22 16:48 AW (Rec: 03/09/22 17:11 AW [id number]) Subjective Physical Therapy Visit Type Type Treatment Note Visit Start Time 16:23 Visit Stop Time 16:48 Total Visit Minutes 25 Physical Therapy Visit Comments Patient Comments Pt is willing to participate with PT. It'll probably feel good to get out of bed but it does seem like an odd time to be getting up. Therapy Pain Assessment Pain When Pain Assessed During Mobility Location Buttock Scale Used per pt: pressure sores: pain scale not stated Pain Management Techniques Modification of Treatment,Re- positioning M4 PT-IP Mobility and Gait Start: 03/08/22 16:58 Freq: Status: Active Protocol: Document 03/09/22 16:48 AW (Rec: 03/09/22 17:11 AW [id number]) PT-Bed Mobility Assessment Supine to Sit Supine to Sit Minimal Assistance,1 Person Assistance Sit to Supine Sit to Supine Minimal Assistance,1 Person Assistance Scooting Scooting Up and Down in Bed Moderate Assistance PT-Transfer Assessment Sit to and From Stand Sit to and from Stand Contact Guard Assistance, Minimal Assistance,1 Person Assistance,Use of Upper Extremities Equipment Transfer Assistive Device Gait Belt Orthotic/Prosthetic Devices or Brace: No Transfers Transfer Destination Bed,Wheelchair Transfer Technique Stand Pivot Transfer Ability Level of Assist Contact Guard Assistance, Minimal Assistance,1 Person Assistance,Use of Upper Extremities Comments Mobility Comments Pt has been switched to a Hill Rom bed which she thought would be easier to move on. PT switched bed to max inflate and pt needed min A to sit up EOB. Her right knee rests in ~ 30 degrees flexion and pt can not actively flex further. Sitting EOB, only her left foot is on the ground. PT positioned pt's own power w/c to her right. Pt contacted the w/c arm with her left arm, stood and spun to her left to transfer to the w/c min A. With the foot plate down, she was able to scoot herself back on the chair but with complaint of pain from her pressure injuries. Pt was then able to transfer back to the bed in similar fashion. Min A for return to supine. Pt participated but needed mod A to scoot up toward HOB. Pt was left lying on her right side with call wilburn in reach. Gait Assessment Comments Gait Comments Pt is not ambulatory at baseline. PT-Balance Assessment Sitting Balance and Reactions Static Sitting Balance Ability Good Dynamic Sitting Balance Ability Fair Standing Balance and Reactions Static Standing Balance Ability Poor Dynamic Standing Balance Ability Poor Device Used none M5 PT-IP Objective Assessments Start: 03/08/22 16:58 Freq: Status: Active Protocol: Document 03/08/22 14:55 AB (Rec: 03/08/22 17:22 AB [id number]) Orientation Orientation/Cognition Level of Alertness Confusional State Orientation Name,Place,Situation Safety Awareness Decreased Safety Awareness Memory Description Short Term Impaired Gross Range of Motion Lower Extremity ROM Assessment Right Impaired Impairments R knee in ~ 30 deg of flexion: unable to complete flexion/ extension with c/o pain: pt stated that she had previous knee fracture without intervention . Strength Lower Extremity Strength Assessment Right Impaired Hip 3+/5 Knee limited ROM Sensation Assessment Sensation Gross Sensation WNL Muscle Tone Muscle Tone WNL Yes M6 PT-IP Treatment Start: 03/08/22 16:58 Freq: Status: Active Protocol: Document 03/09/22 16:48 AW (Rec: 03/09/22 17:11 AW [id number]) Physical Therapy Treatment Education Education Provided Safety M7 PT-IP Assessment and Plan Start: 03/08/22 16:58 Freq: Status: Active Protocol: Document 03/09/22 16:48 AW (Rec: 03/09/22 17:11 AW [id number]) PT Summary Assessment and Plan Summary Progress Towards Goals Slow Progress due to Pain,Slow Progress due to Medical Issues Assessment Summary Slow progress due to pain and weakness. Candelaria appreciated the opportunity to mobilize. She needed min assist for bed mobility and transfers. Given recent uptick in falls frequency at home and current level of assist required, it is clear that she is not at her functional baseline and will require SNF rehab. Discussed progress with ED GLOBE MOUNTER . Goals Bed Mobility Goal Independent Transfer Goal Independent Days to Meet Goals 5 Frequency of Treatment Frequency Of Treatment Once a Day Treatment Plan Physical Therapy Treatment Plan Bed Mobility Training,Transfer Training,Gait Training, Therapeutic Exercise,Balance Retraining,Discharge Planning, Hot or Cold Pack,Neuromuscular Re-ed,Coordination Retraining ,Manual Therapy Precautions Other Precautions Covid precautions; falls Recommendations To Nursing Amount of Assist Needed 1 Person Assist Discharge Recommendations PT Discharge Recommendations SNF Rehab Transportation Needs at Discharge Wheelchair/Cabulance
--- NOTE | 2022-03-09 19:13 | CM.DPC ---
DCP/ ED MARINE CARGO SPECIALIST Note Patient continues to board in ED awaiting SNF rehab. [facility] in [place] declined patient due to covid positive dx as well as no bed availability. MARINE CARGO SPECIALIST calls, leaves VM and faxes referral to [facility] in [place] due to patient's primary [facility] insurance. MARINE CARGO SPECIALIST calls, leaves VM and faxes referral to [place] SNF rehab. In total: [facility], [place], [place], [facility], [place], [facility], [facility], & [facility] SNFs are currently reviewing patient. MARINE CARGO SPECIALIST discussed snf care planning and plan B if patient is not accepted by SNF rehab. MARINE CARGO SPECIALIST discusses barriers of Covid dx, and lack of correspondence with admission teams over the weekend. MARINE CARGO SPECIALIST provides senior resource guide. Daughter Serjio reports that patient utilizes all services on [place] right now and they have tried to access caregivers in the past without success. MARINE CARGO SPECIALIST calls Dani at [facility] regarding patient and leaves VM requesting return call. PT assesses patient again today and continues to recommend SNF rehab, awaiting updated PT eval. Per PT, patient is not appropriate for acute rehab. Plan: ED MARINE CARGO SPECIALIST to continue to f/u with SNF rehabs, patient to continue to work with PT while boarding in ED, Plan B: home with [facility], encourage family to set up natural resources. Carole Skinner, TRANSFORMER MOLDER
[2022-03-09] MEDS: ENOXAPARIN 40 MG/0.4 ML SYRINGE SUBCUT (19:26)
[2022-03-09] MEDS: SERTRALINE 50 MG TABLET 25 MG PO (21:55)
[2022-03-09] MEDS: DONEPEZIL 5 MG TABLET PO (21:56)
[2022-03-09] MEDS: ATORVASTATIN 20 MG TABLET 80 MG PO (22:03)
[2022-03-10] VITALS (56 sets, daily range): BP systolic 106–157; BP diastolic 47–75; PULSE 57–92; O2SAT 93–99
[2022-03-10] MEDS: HALOPERIDOL 5 MG/ML VIAL 2 MG IV (01:55)
[2022-03-10 04:34] LABS: Add Manual Diff / Slide Review NO; Basophils Absolute Auto 100 /uL (0-100); Basophils Percent Auto 0.9 % (0-2); Eosinophils Absolute Auto 200 /uL (0-450); Eosinophils Percent Auto 3.8 % (2-4); Hematocrit 30.1 % (36-46); Hemoglobin 9.9 g/dL (12.0-16.0); Lymphocytes Absolute Auto 1900 /uL (1100-4500); Lymphocytes Percent Auto 33.1 % (25-40); Mean Corpuscular HGB Conc 32.9 % (30-36); Mean Corpuscular Volume 97.5 fL (80-100); Monocytes Absolute Auto 600 /uL (0-900); Monocytes Percent Auto 10.7 % (3-14); Neutrophils Absolute Auto 3000 /uL (1500-7000); Neutrophils Percent Auto 51.5 % (50-75); Platelet Count 175 X10^3/uL (150-400); Red Blood Cell Count 3.09 X10^6/uL (4.0-5.2); Red Cell Distribution Width 15.1 % (11.6-14.8); White Blood Cell Count 5.8 X10^3/uL (4.5-11.0)
[2022-03-10 04:38] LABS: Alanine Aminotransferase 20 IU/L (<35); Albumin 2.7 g/dL (3.5-5.0); Alkaline Phosphatase 49 U/L (38-126); Aspartate Aminotransferase 30 IU/L (14-36); BUN Creatinine Ratio 29.7 (6-22); Bilirubin Total 0.1 mg/dL (0.2-1.3); Blood Urea Nitrogen 19 mg/dL (7-17); Calcium 7.8 mg/dL (8.4-10.2); Carbon Dioxide 23 mmol/L (22-32); Chloride 109 mmol/L (98-107); Estimated Glomerular Filt Rate > 60 mL/min (>60); Globulin 2.7 g/dL (1.7-4.1); Glucose 100 mg/dL (80-110); HEMOLYSIS < 15 (0-50); Potassium 4.4 mmol/L (3.4-5.1); Sodium 137 mmol/L (137-145); Total Protein 5.4 g/dL (6.3-8.2)
[2022-03-10] MEDS: lisinopriL 5 MG TABLET PO ×2 (06:03→10:06)
[2022-03-10] MEDS: BUSPIRONE 5 MG TABLET 10 MG PO ×3 (10:04→22:27)
[2022-03-10] MEDS: carvediloL 12.5 MG TABLET 25 MG PO ×2 (10:04→22:28)
[2022-03-10] MEDS: METFORMIN HCL 500 MG TABLET PO ×2 (10:05→18:15)
[2022-03-10] MEDS: ASPIRIN EC 81 MG TABLET PO (10:05)
[2022-03-10] MEDS: ACETAMINOPHEN 325 MG TABLET 975 MG PO ×2 (10:05→22:27)
[2022-03-10] MEDS: allopurinoL 300 MG TABLET PO (10:05)
[2022-03-10] MEDS: NYSTATIN CREAM 30 GM 1 APPLIC TOP ×2 (10:06→22:17)
[2022-03-10] MEDS: LEVOTHYROXINE 50 MCG TABLET PO (10:06)
--- NOTE | 2022-03-10 14:47 | CM.SWNOTE ---
Addendum entered by ELIAN Hurley 03/10/22 16:06: SW and special procedure technologist called [facility] in [place] to inquire if they have a swing bed but they are currently full. JG called [facility] and talked to Dani , who reports that pt has been approved for RN, PT, OT, and bath aid. Dani reports that covid positive patients need a 5 day window from when symptoms started or from positive covid test before staff can go out to the home. That means that the earliest home health can visit pt in her home is 03/13. Dani reports that he will reach out to patient tomorrow morning and scheduling will reach out to schedule the first visit. ELIAN Hurley Original Note: ED SW Note DCP/ ED OUTSOLE CEMENTER Note Patient continues to board in ED awaiting SNF rehab. SW called [facility] and they are not accepting Covid positive patients. SW called [place] and left a voicemail. SW called [place] and was informed that they no longer offer chcf services. SW called [facility] and they are not accepting covid positive patients. SW called [facility] and they are not accepting covid positive patients. SW called [facility] and left a voicemail. SW called [facility] and they are not accepting covid positive patients at this time because they just got off a covid lock down. SW called [facility] and left a voicemail. SW called [facility] in [place] and they are not accepting covid positive patients. SW called [facility] and left a voicemail. Previous SW ruled out the following facilities: [facility], [facility], [facility], and [facility]. SW met pt and daughter Leonila at bedside to inform them that we have exhausted our SNF search and cannot find any facility to accept pt. Leonila reports that pt needs 24 hour assistance and cannot go home. SW inquired if pt can stay with Leonila or visa versa and Leonila reports that will not work. JG inquires about private pay caregivers and Leonila reports that they have been trying to find pp caregivers for years and haven't been able to find anyone due to a lack of caregivers in community. SW called [facility] and was informed that they do not serve [place]. JG called [facility] and was informed that they do not have any caregivers that serve [place]. ELIAN Hurley
--- NOTE | 2022-03-10 18:36 | PC.NURSE ---
Pt pulled her own IV out, site assessed, Dr. Martinez notified. Provider ok'd pt to not have IV
--- NOTE | 2022-03-10 20:00 | PC.NURSE ---
Attempted to call Ada daughter [phone] to discuss discharge plans. No answer.
[2022-03-10] MEDS: HALOPERIDOL 5 MG/ML VIAL (22:06)
--- NOTE | 2022-03-10 22:13 | PC.NURSE ---
Patient yelling loudly for help, removed gown and blankets and was attempting to get out of bed. Lights turned on and patient re oriented to place and situation. Patient given fresh gown and warm blanket for comfort. Verbal order given for 2mg IM Haldol. Given. Patient given call light. Bed in low position. Will continue to monitor.
[2022-03-10] MEDS: DONEPEZIL 5 MG TABLET PO (22:27)
[2022-03-10] MEDS: SERTRALINE 50 MG TABLET 25 MG PO (22:27)
[2022-03-10] MEDS: ATORVASTATIN 20 MG TABLET 80 MG PO (22:28)
[2022-03-11] VITALS (26 sets, daily range): BP systolic 103–157; BP diastolic 50–62; PULSE 60–78; O2SAT 95–98
--- NOTE | 2022-03-11 03:39 | PC.NURSE ---
Pt crying out due to the fact that she had lost her call light. upon entering the room found pt sitting on side of bed with stool on floor under her feet and the bed in soiled and in disarray . RN and I gave pt bed bath and cleaned up the stool. RN replaced purwick and gave clean brief, and clean linens. pt given call light and bed alarm turned on.
[2022-03-11] MEDS: BUSPIRONE 5 MG TABLET 10 MG PO ×3 (09:17→21:38)
[2022-03-11] MEDS: carvediloL 12.5 MG TABLET 25 MG PO ×2 (09:17→21:37)
[2022-03-11] MEDS: ACETAMINOPHEN 325 MG TABLET 975 MG PO ×2 (09:17→21:38)
[2022-03-11] MEDS: allopurinoL 300 MG TABLET PO (09:18)
[2022-03-11] MEDS: NYSTATIN CREAM 30 GM 1 APPLIC TOP ×2 (09:18→21:39)
[2022-03-11] MEDS: METFORMIN HCL 500 MG TABLET PO ×2 (09:18→16:13)
[2022-03-11] MEDS: LEVOTHYROXINE 50 MCG TABLET PO (09:19)
[2022-03-11] MEDS: lisinopriL 5 MG TABLET PO (09:19)
[2022-03-11] MEDS: ASPIRIN EC 81 MG TABLET PO (09:19)
--- NOTE | 2022-03-11 11:15 | PC.NURSE ---
Pt sitting up in bed aaox3/3, breathing even and unlabored. Skin pink, warm, dry. Denies pain. Breakfast at bedside, pt assisting self and tolerating. Purewick in place. Call light in reach and pt verbalizes understanding of use, all needs met at this time. Updated on plan of care.
--- NOTE | 2022-03-11 12:23 | CM.SWNOTE ---
Addendum entered by ELIAN Hurley 03/11/22 14:53: SW continued reaching out to half-way facilities in attempt to find accepting facility. SW called [facility] and was informed by admission coordinator Yecenia that they are not accepting covid positive patients at this time. SW received return call from [facility] with the update that they are currently testing all staff and patients for covid. If they get the all clear to begin admitting patients again, they would not be able to admit this pt until they have an isolation room become available. There is no time frame of when they would have an available isolation bed. SW called [facility] and left a voicemail requesting a call back. [facility] [place] and left a voicemail requesting a call back. SW called [facility] at [place] and left a voicemail requesting a call back. SW called [facility] and there was no answer. [facility] and left a voicemail requesting a call back. SW called [facility] and left a voicemail requesting a call back. SW called [facility] [place] and was informed that they are not accepting covid positive patients. SW called [facility] and left a voicemail requesting a call back. SW called [facility] and was informed by admission coordinator Neno that they are not accepting covid positive patients. SW called [facility] and left a voicemail requesting a call back. SW called [facility] and left a voicemail requesting a call back. SW called [facility] and was informed that a patient needs to be ten days post first positive test before they can accept. ELIAN Hurley Addendum entered by ELIAN Hurley 03/11/22 13:12: SW met patient at bedside and confirmed that she lives with her on [address], the address on pt's facesheet is correct. Pt reports that her is on hospice and has private caregivers that come twice daily; a hour and a half in the morning and an hour and a half in the evening. SW explained that we have not been able to find a SNF that is able to accept pt and that the provider wants to DC. SW asked pt where she would want to discharge to and patient stated,I'd like to go home. I'd be comfortable there. My 's caregivers would be available to me. Plan: JG will continue to work on discharge plan. ELIAN Hurley Original Note: JG ED Note Patient continues to board in ED awaiting SNF rehab. SW has tried 16 SNF within 50 miles of hospital and there are no accepting facilities. Barrier continues to be covid diagnosis. Most facilities require patients to be quarantined for 10 days from their first positive covid test and patient tested positive on Thursday 03/08. JG called pt's daughter Leonila to provide update that there are no accepting SNFs and we need to move forward with a dc home but Leonila reported that going home is not an option. JG suggested that pt discharge to daughter Serjio's home in [place], as Serjio also has covid. Leonila stated that this is not an option, as Serjio needs to quarantine and then go back to work. GJ explained that pt does not meet criteria for inpatient and does not have a need to stay in ED at this time but Leonila refused to agree to take mother home, citing four EMS calls in the last week due to falls. Plan: JG will discuss with hospital admin and make a plan for safe discharge. ELIAN Hurley
--- NOTE | 2022-03-11 14:01 | PC.NURSE ---
Responded to pt call light, pt states I told someone I wanted to go home but now that I'm thinking about it I don't think I'm safe to go home. Updated PIPE SUPERVISOR Jana.
--- NOTE | 2022-03-11 14:35 | PT.IPTN ---
Physical Therapy Treatment Note M2 PT-IP Current Condition Start: 03/08/22 16:58 Freq: Status: Active Protocol: Document 03/08/22 14:55 AB (Rec: 03/08/22 17:22 AB [email or web address]) Physical Therapy Current Condition Current Condition Evaluation Date 03/08/22 Treatment Diagnosis Covid ; GLF; generalized weakness Onset Date 03/08/22 M3 PT-IP Subjective Start: 03/08/22 16:58 Freq: Status: Active Protocol: Document 03/11/22 14:35 AB (Rec: 03/11/22 17:03 AB [id number]) Subjective Physical Therapy Visit Type Type Treatment Note Visit Start Time 14:35 Visit Stop Time 15:07 Total Visit Minutes 32 Number of DATA WAREHOUSING ENGINEER Visits 0 Physical Therapy Visit Comments Patient Comments requesting to use the toilet M4 PT-IP Mobility and Gait Start: 03/08/22 16:58 Freq: Status: Active Protocol: Document 03/11/22 14:35 AB (Rec: 03/11/22 17:03 AB [email or web address]) PT-Bed Mobility Assessment Supine to Sit Supine to Sit Maximum Assistance,Head of Bed Elevated,Bedrails PT-Transfer Assessment Sit to and From Stand Sit to and from Stand Moderate Assistance,1 Person Assistance,Use of Upper Extremities Equipment Transfer Assistive Device Gait Belt Orthotic/Prosthetic Devices or Brace: No Transfers Transfer Destination Bedside Commode Transfer Technique Stand Pivot Transfer Ability Level of Assist Minimal Assistance,1 Person Assistance,Use of Upper Extremities Comments Mobility Comments checked on pt and pt requesting to use the toilet. informed nurse and positioned bedside commode. pt assisted with bed mobility max A with HOB elevated. completed squat pivot transfer with pt reaching for armrest of bedside commode. requiring min A for standing balance while assisted the brief management. completed sit to stand from bedside commode mod to max A and max cues and able to maintain standing min A for balance while nurse assist pt with hygiene care. pt pivot transfer back to bed min A. completed supine to sit mod A with sit to supine. positioned in bed call light and table placed within reach. pt requiring cues with all tasks and has decrease safety awareness. M5 PT-IP Objective Assessments Start: 03/08/22 16:58 Freq: Status: Active Protocol: Document 03/08/22 14:55 AB (Rec: 03/08/22 17:22 AB [email or web address]) Orientation Orientation/Cognition Level of Alertness Confusional State Orientation Name,Place,Situation Safety Awareness Decreased Safety Awareness Memory Description Short Term Impaired Gross Range of Motion Lower Extremity ROM Assessment Right Impaired Impairments R knee in ~ 30 deg of flexion: unable to complete flexion/ extension with c/o pain: pt stated that she had previous knee fracture without intervention . Strength Lower Extremity Strength Assessment Right Impaired Hip 3+/5 Knee limited ROM Sensation Assessment Sensation Gross Sensation WNL Muscle Tone Muscle Tone WNL Yes M6 PT-IP Treatment Start: 03/08/22 16:58 Freq: Status: Active Protocol: Document 03/11/22 14:35 AB (Rec: 03/11/22 17:03 AB [email or web address]) Physical Therapy Treatment Education Education Provided Safety M7 PT-IP Assessment and Plan Start: 03/08/22 16:58 Freq: Status: Active Protocol: Document 03/11/22 14:35 AB (Rec: 03/11/22 17:03 AB [id number]) PT Summary Assessment and Plan Potential Rehabilitation Potential Fair Summary Impairments Pain,ROM,Strength,Balance, Coordination,Sensation,Tone, Cognition,Bed Mobility, Transfers,Gait,Activity Tolerance Progress Towards Goals Slow Progress due to Medical Issues,Slow Progress due to Activity Tolerance,Slow Progress - Other Assessment Summary Pt continues to require mod to max A with mobility and max cues with all tasks. Spoke with transplant case manager and pt requiring more of OT needs for ADLs. territory manager general sales informed that they are having difficulty placing pt to SNF. pt's PLOF is w/c bound but is modified independent with transfers prior to hospitalization. currently, pt needing assist and max cues and presents with decrease safety awareness. pt will require 24/7 assist availability at home and will also need services if pt goes home. Informed OT regarding pt and possible eval . Goals Bed Mobility Goal Independent Transfer Goal Independent Days to Meet Goals 5 Frequency of Treatment Frequency Of Treatment Once a Day Treatment Plan Physical Therapy Treatment Plan Bed Mobility Training,Transfer Training,Therapeutic Exercise ,Balance Retraining,Discharge Planning,Hot or Cold Pack, Neuromuscular Re-ed, Coordination Retraining,Manual Therapy Precautions Other Precautions Covid precautions; falls Recommendations To Nursing Amount of Assist Needed 1 Person Assist Discharge Recommendations PT Discharge Recommendations Home with 24/7 Assist Available,Home Health,SNF Rehab,Home vs SNF Transportation Needs at Discharge Wheelchair/Cabulance
--- NOTE | 2022-03-11 16:43 | CM.SWNOTE ---
SCOOP MACHINE OPERATOR Note: Reviewed chart. Received notification from ELIAN/Jana requesting assistance with case. Per Jana patient has been in the ED for 3dys and CM team has been looking for SNF (see CM notes for details). SCOOP MACHINE OPERATOR placed call to August at [facility] to check on female beds and to ask August to check on patient's Medicare days. August reports that they cannot accept patient because she has active COVID and they are not currently accepting waivers. Patient did not have 3 inpatient nights at [facility] when she was there a few weeks ago. SCOOP MACHINE OPERATOR and RN/Sierra placed call to daughter/Leonila to explained role. Leonila basically told us that she cannot help and won't pick patient up from the hospital even though she is not admitted and medically stable. Patient is w/c bound at baseline and transferred with 1 person during PT evaluation. After discussion with daughter SCOOP MACHINE OPERATOR decided to call patient's spouse/Marck whom is not listed on face sheet. Per state if there is no DPOA paperwork provided, spouse is automatically DPOA. Marck agreeable for patient to come home but would like additional services. He reports that he has caregivers in the morning and evening. Marck also reports that he is w/c bound. Marck requesting SCOOP MACHINE OPERATOR call his son/Gurpreet to assist with arrangements to get patient home. RN and SCOOP MACHINE OPERATOR call son/Gurpreet explained role and above situation. Gurpreet reports that he has been working with the state to get patient on Medicaid. He hopes to have that completed within the next few weeks. In the meantime Gurpreet unclear on why CM team unable to place patient in SNF. Notified Gurpreet that due to COVID and her being very close to her baseline and not having an inpatient 3dy hospital stay she does not qualify. Son reports that he understands. Son had to take another call during conversation. therefore, SCOOP MACHINE OPERATOR to call back. In the meantime, COLLIN/Sierra called Dani at [facility] to confirm that services have been arranged. Start date expected to be on 03-13. Placed call back to son/Gurpreet and he reports that he just go off the phone with the state. He reports that patient passed financial portion of Medicaid application. Son made aware that it is going to take a few more weeks to get Medicaid and locate long-term placement. Son in agreement to take patient home tomorrow 03-12-22. He will do his best to get additional help and home health. Son aware that until patient on Medicaid placement is unrealistic. Son expected to call SCOOP MACHINE OPERATOR in AM with oyster picker time. Patient most likely will need priority boarding pass back to [place]. Left note with above information on ED status board. P: Home with family tomorrow 12-14 with Home Health with [facility] . FRANCISCO J
--- NOTE | 2022-03-11 20:00 | PC.NURSE ---
18:00 Pt offered meal tray by SOFIE Horowitz. Per Lor, pt refused to eat anything, oral fluids given. Meal tray left on pt's table in case pt wants to eat later. Offered tray agian later, pt declined.
[2022-03-11] MEDS: ATORVASTATIN 20 MG TABLET 80 MG PO (21:38)
[2022-03-11] MEDS: SERTRALINE 50 MG TABLET 25 MG PO (21:38)
[2022-03-11] MEDS: DONEPEZIL 5 MG TABLET PO (21:39)
--- NOTE | 2022-03-11 23:54 | PC.NURSE ---
pt cleaned of stool and purewick replaced
[2022-03-12] VITALS (7 sets, daily range): BP systolic 145–173; BP diastolic 65–77; PULSE 67–90; RESP 14–20; TEMP 36.5; O2SAT 96–97
--- NOTE | 2022-03-12 05:05 | PC.NURSE ---
pt confused attempting to climb out of bed repositioned pt, and pt settled down
[2022-03-12] MEDS: ACETAMINOPHEN 325 MG TABLET 975 MG PO (10:41)
[2022-03-12] MEDS: ASPIRIN EC 81 MG TABLET PO (10:42)
[2022-03-12] MEDS: lisinopriL 5 MG TABLET PO (10:43)
[2022-03-12] MEDS: carvediloL 12.5 MG TABLET 25 MG PO (10:43)
[2022-03-12] MEDS: BUSPIRONE 5 MG TABLET 10 MG PO (10:43)
[2022-03-12] MEDS: LEVOTHYROXINE 50 MCG TABLET PO (10:44)
[2022-03-12] MEDS: METFORMIN HCL 500 MG TABLET PO (10:45)
[2022-03-12] MEDS: allopurinoL 300 MG TABLET PO (10:45)
[2022-03-12] MEDS: NYSTATIN CREAM 30 GM 1 APPLIC TOP (10:46)
--- NOTE | 2022-03-12 12:16 | CM.DPNOTE ---
Called [facility] for BLS transport for patient marcia Acosta to [place]. Spoke to Gustavo who said they could machine operator picker patient 03/[place] [address] They will be here between 1280-2111. There were no earlier ambulance services available. Adriane Dowd CM Assist.
--- NOTE | 2022-03-12 12:26 | PT.IPTN ---
Physical Therapy Treatment Note M2 PT-IP Current Condition Start: 03/08/22 16:58 Freq: Status: Active Protocol: Document 03/08/22 14:55 AB (Rec: 03/08/22 17:22 AB [email or web address]) Physical Therapy Current Condition Current Condition Evaluation Date 03/08/22 Treatment Diagnosis Covid ; GLF; generalized weakness Onset Date 03/08/22 M3 PT-IP Subjective Start: 03/08/22 16:58 Freq: Status: Active Protocol: Document 03/12/22 12:26 AW (Rec: 03/12/22 12:51 AW [id number]) Subjective Physical Therapy Visit Type Type Treatment Note Visit Start Time 11:45 Visit Stop Time 12:26 Total Visit Minutes 41 Physical Therapy Visit Comments Patient Comments Pt is indecisive but ultimately willing to work with PT Therapy Pain Assessment Pain When Pain Assessed During Mobility Pain Present Pain Present Denied Pain M4 PT-IP Mobility and Gait Start: 03/08/22 16:58 Freq: Status: Active Protocol: Document 03/12/22 12:26 AW (Rec: 03/12/22 12:51 AW [id number]) PT-Bed Mobility Assessment Supine to Sit Supine to Sit Moderate Assistance,1 Person Assistance,Bedrails Sit to Supine Sit to Supine Moderate Assistance,1 Person Assistance PT-Transfer Assessment Sit to and From Stand Sit to and from Stand Moderate Assistance,Maximum Assistance,1 Person Assistance ,Use of Upper Extremities Equipment Transfer Assistive Device Gait Belt Orthotic/Prosthetic Devices or Brace: No Transfers Transfer Destination Bed,Wheelchair Transfer Ability Level of Assist Maximum Assistance,1 Person Assistance,2 Person Assistance ,Use of Upper Extremities Comments Mobility Comments PT arrived and pt denied need to use the commode. PT checked and pt had been incontinent of feces. Alerted nursing for assist. Pt completed supine to sit mod A and was able to sit with her feet on the floor CGA for balance support. She completed LAQ LLE and hip abduction/adduction vs PT resistance BLE x 10. PT positioned pt's wheelchair near the bed. Pt needed mod/ max A to stand and place hands on w/c, mod/max A for balance support while nursing provided chioma care. Pt stood ~ 2 minutes and then needed max A to transfer to w/c. PT attempted to maneuver wheelchair closer to the bed but the battery was . Pt needed max A x 1-2 to stand and transfer back to bed which was farther away than optimal . Mod A x 1 for return to supine. Pt was left with nursing. M5 PT-IP Objective Assessments Start: 03/08/22 16:58 Freq: Status: Active Protocol: Document 03/08/22 14:55 AB (Rec: 03/08/22 17:22 AB [email or web address]) Orientation Orientation/Cognition Level of Alertness Confusional State Orientation Name,Place,Situation Safety Awareness Decreased Safety Awareness Memory Description Short Term Impaired Gross Range of Motion Lower Extremity ROM Assessment Right Impaired Impairments R knee in ~ 30 deg of flexion: unable to complete flexion/ extension with c/o pain: pt stated that she had previous knee fracture without intervention . Strength Lower Extremity Strength Assessment Right Impaired Hip 3+/5 Knee limited ROM Sensation Assessment Sensation Gross Sensation WNL Muscle Tone Muscle Tone WNL Yes M6 PT-IP Treatment Start: 03/08/22 16:58 Freq: Status: Active Protocol: Document 03/12/22 12:26 AW (Rec: 03/12/22 12:51 AW [id number]) Physical Therapy Treatment Education Education Provided Safety M7 PT-IP Assessment and Plan Start: 03/08/22 16:58 Freq: Status: Active Protocol: Document 03/12/22 12:26 AW (Rec: 03/12/22 12:51 AW [id number]) PT Summary Assessment and Plan Potential Rehabilitation Potential Fair Summary Impairments Pain,ROM,Strength,Balance, Coordination,Sensation,Tone, Cognition,Bed Mobility, Transfers,Gait,Activity Tolerance Progress Towards Goals Slow Progress due to Medical Issues,Slow Progress due to Activity Tolerance,Slow Progress - Other Assessment Summary Pt was more confused today and had difficulty coordinating her movements. She needed mod/ max A x 1-2 for transfers. Spoke with PHLEBOTOMY PROGRAM COORDINATOR and informed her about pt's power wheelchair needing to be charged. PHLEBOTOMY PROGRAM COORDINATOR stated she would communicate that to family. Pt will require 24/7 assist for mobility at discharge. SNF rehab is indicated but pt has been difficult to place secondary to COVID (+). If pt returns home, she will need 24 /7 assist for mobility and home health PT. Goals Bed Mobility Goal Independent Transfer Goal Independent Days to Meet Goals 5 Frequency of Treatment Frequency Of Treatment Once a Day Treatment Plan Physical Therapy Treatment Plan Bed Mobility Training,Transfer Training,Therapeutic Exercise ,Balance Retraining,Discharge Planning,Hot or Cold Pack, Neuromuscular Re-ed, Coordination Retraining,Manual Therapy Precautions Other Precautions Covid precautions; falls Recommendations To Nursing Amount of Assist Needed 1 Person Assist,2 Person Assist Discharge Recommendations PT Discharge Recommendations Home with 20/10 Assist Available,Home Health,SNF Rehab,Home vs SNF Transportation Needs at Discharge Wheelchair/Cabulance
--- NOTE | 2022-03-12 16:01 | CM.DPC ---
DCP Note Continued CLASSROOM TECHNOLOGY COACH Carole and CLASSROOM TECHNOLOGY COACH calls patient's daughter in law Vidhya in effort to speak with patient's son Gurpreet. Vidhya reports concern for patient's d/c to home due to fall risk. financial sales advisor continue to endorse that patient is medically clear for d/c, there is no medical diagnosis for admission and patient has been evaluated by PT and several ED providers. Vidhya reports that daughter Leonila requests that financial sales advisor fax clinicals [facility] in [place], with son and daughter's permission Karla PEDRAZAW calls Nancy Bloom at [facility] and leaves requesting return call as well as faxes clinicals for review. financial sales advisor call Patient's son Gurpreet, in the background it is audible that patient's other children are present via phone or in person with Gurpreet. Patient's children report that [facility] cannot accept patient due to patient's bedsores. Patient's children continue to request SNF rehab placement or admission to hospital. Karla PEDRAZAW informs patient's children that there is no admittable diagnosis to admit patient and it would be Medicare fraud to admit patient. financial sales advisor continue to discuss options of getting a hotel for patient and arranging schedule with patient's several children to assist in caring for patient as needed. Patient's son does not indicate response to this suggestion. Currently patient's spouse does have caregiving in the residence in AM and PM. CLASSROOM TECHNOLOGY COACH suggested adding hours and CM team can set up home health via [facility]. Again, report to family that patient does not meet criteria to be admitted to acute care. Son with several questions but eventually indicated understanding. Son reports concern for patient's motorized wheelchair being out of battery, financial sales advisor state that they will arrange assistance for ED staff to assist. financial sales advisor request ferry time preference from son and also provide the option of private pay EMS transport. Son Gurpreet reports preference for van transport and states that his sister Leonila can pick pack worker patient at 1630 to catch the [address]. It is reported that daughter Leonila will be arriving via transport van. CLASSROOM TECHNOLOGY COACH states that [facility] will complete priority boarding pass for patient and fax to ferry terminal. Karla PEDRAZAW completes priority boarding pass, Carole PEDRAZAW has ED provider Dr. Su sign ferry boarding pass and faxes form to [facility]. CLASSROOM TECHNOLOGY COACH informs weigh and charge worker of patient copy of boarding pass in patient's chart. CLASSROOM TECHNOLOGY COACH calls [facility] [employer] and confirms that there is space for patient on ferry and reservation is not needed. financial sales advisor call Dani at [facility] to confirm start of home helath care, Dani states that HH services will be out to patient's home as soon as Thursday03/17/22. Dani states he has been in contact with patient's son Gurpreet regarding this. Dani states he has coordinated with outpatient wound care clinic regarding patient as well. Dani also indicates that he has notified patient's PCP. CLASSROOM TECHNOLOGY COACH requests that Dani attempt to have staff see patient on [place] sooner than Thursday if possible, Dani indicates understanding and agreement. Plan: patient to d/c to home via van transport from daughter Leonila, patient to board [facility] to [place] with priority boarding. [facility] to f/u with patient with current referral for services, patient to f/u with outpatient wound care as well. Patient's family to continue to establish skilled nursing care plan and f/u with Medicaid services. [facility] brochure provided with d/c instructions. Family encouraged to follow up with Medicaid for long-term placement. They are also encouraged to increase caregiver hours in the residence or takes turns caring for patient and spouse if they feel it is needed. Carole Skinner BROKE BEATER and ELIAN Graves
--- NOTE | 2022-03-12 16:14 | OT.IPNOTE ---
Spoke to upper caser, regarding the pt and she states that the pt is leaving today at 4:30pm instead of tomorrow. Therefore defer OT needss to home health OT.
== END 2022-03-12 17:30 | disposition home or self-care (01) ==
PROVIDERS: Emergency Medicine; Emergency Provider Emergency Medicine; PCP Family Medicine
DX: U07.1 COVID-19 (principal); R44.3 Hallucinations, unspecified; R53.1 Weakness; R29.6 Repeated falls; Z79.899 Other long term (current) drug therapy; Z20.822 Contact with and (suspected) exposure to COVID-19
CPT/HCPCS: 0241U; 36415; 51701; 70450; 80053; 80320; 80329; 81001; 82140; 82550; 83605; 83690; 83735; 83880; 84145; 84443; 84484; 85025; 87040; 87086; 93005; 96361; 96372; 96374; 96376; 97162; 97530; 99284; G0480; J1630; J1650